=== PATIENT | male | born 1970 | race African-American/Black ===

== ENCOUNTER 2020-02-07 16:21 | Inpatient (IN) | payer SELFPAY ==
[~2020-02-07] VITALS: Ht 175.3 cm; Wt 102.0 kg
--- NOTE | 2020-02-07 16:44 | PHYS DOC ---
General Adult EDM: Chief Complaint: WEAKNESS/GENERALIZED HPI: HPI: Patient is a 50-year-old male who quit smoking cold turkey approximately 3 weeks ago and since that time has struggled with just not feeling right. He states he has significant cravings that he battles through. He states during those severe cravings at times he gets some chest tightness. He denies any shortness of breath. He denies dyspnea on exertion. In fact, he states he can walk more than a mile without getting particularly short of breath. He states he works out doing multiple push-ups and other exercises every night without chest pain. He states his body feels generally weak and just not the same. All of the symptoms of started since he stopped smoking. [] Review of Systems: Review of Systems: Constitutional: Denies fever or chills. [] Eyes: Denies change in visual acuity. [] HENT: Denies nasal congestion or sore throat. [] Respiratory: Denies cough or shortness of breath. [] Cardiovascular: Per HPI. [] GI: Denies abdominal pain, nausea, vomiting, bloody stools or diarrhea. [] : Denies dysuria. [] Musculoskeletal: Denies back pain or joint pain. [] Integument: Denies rash. [] Neurologic: Denies headache, focal weakness or sensory changes. [] Endocrine: Denies polyuria or polydipsia. [] Lymphatic: Denies swollen glands. [] Psychiatric: Denies depression or anxiety. [] Heart Score: HEART Score for Chest Pain: HEART Score for Chest Pain Response (Comments) Value History Moderately Suspicious 1 ECG Nonspecific Repolarizatio 1 Age >45 - < 65 1 Risk Factors 1 or 2 Risk Factors 1 Troponin < Normal Limit 0 Total 4 Risk Factors: Risk Factors: DM, Current or recent (<one month) smoker, HTN, HLP, family history of CAD, obesity. Risk Scores: Score 0 - 3: 2.5% MACE over next 6 weeks - Discharge Home Score 4 - 6: 20.3% MACE over next 6 weeks - Admit for Clinical Observation Score 7 - 10: 72.7% MACE over next 6 weeks - Early Invasive Strategies Physical Exam: PE: Constitutional: Well developed, well nourished, no acute distress, non-toxic appearance. [] HENT: Normocephalic, atraumatic, bilateral external ears normal, oropharynx moist, no oral exudates, nose normal. [] Eyes: PERRLA, EOMI, conjunctiva normal, no discharge. [] Neck: Normal range of motion, no tenderness, supple, no stridor. [] Cardiovascular:Heart rate regular rhythm, no murmur [] Lungs & Thorax: Bilateral breath sounds clear to auscultation [] Abdomen: Bowel sounds normal, soft, no tenderness, no masses, no pulsatile masses. [] Skin: Warm, dry, no erythema, no rash. [] Back: No tenderness, no CVA tenderness. [] Extremities: No tenderness, no cyanosis, no clubbing, ROM intact, no edema. [] Neurologic: Alert and oriented X 3, normal motor function, normal sensory function, no focal deficits noted. [] Psychologic: Affect normal, judgement normal, mood normal. [] EKG: EKG: [EKG: Sinus rhythm occasional PVCs some repolarization anteriorly no obvious ischemic changes] Radiology/Procedures: Radiology/Procedures: [] Impression: REASON: chest pain PROCEDURE: CHEST AP ONLY CHEST AP ONLY Clinical History: Chest pain Technique: AP view of the chest was obtained at 02/07/2020 4:41 PM. Comparison: None. Findings: The cardiomediastinal silhouette is normal. The pulmonary vasculature is normal. The lungs and pleural margins are clear. Impression: No evidence of an acute cardiopulmonary process. Course & Med Decision Making: Course & Med Decision Making Pertinent Labs and Imaging studies reviewed. (See chart for details) [ED course: Evaluation reveals a 50-year-old male with a history of some chest pain and just not feeling right. He remained chest pain-free during his stay in the department however had a heart score of 4 with an abnormal EKG and some risk factors so to the patient's best interest to be kept overnight with a cardiac stress test in the morning. Patient agrees to this.] Dragon Disclaimer: Danielle Disclaimer: This electronic medical record was generated, in whole or in part, using a voice recognition dictation system. Departure Departure Impression: Primary Impression: Chest pain Qualified Codes: R07.9 - Chest pain, unspecified Disposition: ADMITTED INPATIENT Admitting Physician: VIKY Condition: STABLE Referrals: NO PCP (PCP) LINA MOSER DO Feb 07, 2020 16:44
[2020-02-07] MEDS ORDERED: diazePAM 5 MG TABLET PO ONE (16:45)
[2020-02-07 16:52] LABS: BASO # 0.1 x10^3/uL (0.0-0.2); BASO % 0 % (0-3); EOS # 0.2 x10^3/uL (0.0-0.7); EOS % 1 % (0-3); HEMATOCRIT 47.4 % (39.0-53.0); HEMOGLOBIN 15.7 g/dL (13.0-17.5); LYMPH # 2.7 x10^3/uL (1.0-4.8); LYMPH % 21 % (24-48); MEAN CORPUSCULAR HEMOGLOBIN 29 pg (25-35); MEAN CORPUSCULAR HGB CONC 33 g/dL (31-37); MEAN CORPUSCULAR VOLUME 86 fL (79-100); MONO # 1.1 x10^3/uL (0.0-1.1); MONO % 8 % (0-9); NEUT # 8.7 x10^3/uL (1.8-7.7); NEUT % 69 % (31-73); PLATELET COUNT 225 x10^3/uL (140-400); RED CELL DISTRIBUTION WIDTH 13.8 % (11.5-14.5); WHITE BLOOD COUNT 12.7 x10^3/uL (4.0-11.0)
[2020-02-07 17:02] LABS: CALCIUM 9.7 mg/dL (8.5-10.1); CREATININE 1.6 mg/dL (0.7-1.3); GFR 55.6; POTASSIUM 3.6 mmol/L (3.5-5.1)
[2020-02-07 17:08] LABS: ALBUMIN 3.9 g/dL (3.4-5.0); MAGNESIUM 2.2 mg/dL (1.8-2.4); TOTAL BILIRUBIN 0.5 mg/dL (0.2-1.0); TOTAL PROTEIN 7.9 g/dL (6.4-8.2)
--- NOTE | 2020-02-07 17:21 | RAD ---
CHEST AP ONLY Clinical History: Chest pain Technique: AP view of the chest was obtained at 02/07/2020 4:41 PM. Comparison: None. Findings: The cardiomediastinal silhouette is normal. The pulmonary vasculature is normal. The lungs and pleural margins are clear. Impression: No evidence of an acute cardiopulmonary process. Electronically signed by: Seun Dhillno III, MD (02/07/2020 5:18 PM) [id number]
[2020-02-07 17:37] LABS: BILIRUBIN,URINE NEGATIVE (NEG); CLARITY,URINE CLEAR; COLOR,URINE YELLOW; NITRITE,URINE NEGATIVE (NEG); PROTEIN,URINE 30 mg/dL (NEG-TRACE)
[2020-02-07 17:38] LABS: BACTERIA,URINE 0 /HPF (0-FEW); RBC,URINE 0 /HPF (0-2); WBC,URINE 0 /HPF (0-4)
[2020-02-07] MEDS ORDERED: ASPIRIN CHEWABLE 81 MG TABLET. PO ONE (17:45)
[2020-02-07] MEDS ORDERED: ACETAMINOPHEN 325 MG TABLET. PO PRN (17:45)
[2020-02-07] MEDS ORDERED: ONDANSETRON PF 4 MG/2 ML VIAL. IV PRN (17:45)
[2020-02-07] MEDS ORDERED: NITROGLYCERIN SUBLINGUAL 0.4 MG BOTTLE OF 25. SL PRN (17:45)
[2020-02-07 19:58] VITALS: BP 215/122
--- NOTE | 2020-02-07 20:00 | EKG ---
[address] [place] [address] Test Date: 2020-02-07 Test Time: 17:00:47 Pat Name: LINDA BRISCOE Department: Room: 260 1 Gender: M Outpatient Surgery Rn: : 1970 Requested By: LINA MOSER Order Number: [id number] Reading MD: Hernando Ovalles Measurements Intervals [place] Rate: 95 P: 27 VA: 124 QRS: -7 QRSD: 80 T: -177 QT: 354 QTc: 448 Interpretive Statements SINUS RHYTHM VENTRICULAR PREMATURE COMPLEX(ES) LEFT ATRIAL ABNORMALITY LEFTWARD AXIS LVH WITH REPOLARIZATION ABNORMALITY QRS(T) CONTOUR ABNORMALITY CONSIDER INFERIOR MYOCARDIAL DAMAGE ABNORMAL ECG Electronically Signed On 02-08-2020 20:16:33 CDT by Hernando Ovalles
[2020-02-07] MEDS ORDERED: amLODIPine BESYLATE 5 MG TABLET PO ONE (20:45)
[2020-02-07] MEDS ORDERED: amLODIPine BESYLATE 10 MG TABLET PO ONE (20:45)
[2020-02-07 22:40] VITALS: BP 202/123
[2020-02-07] MEDS: hydrALAZINE 20 MG/ML VIAL. IVP PRN (22:42)
[2020-02-08] VITALS (29 sets, daily range): BP systolic 97–216; BP diastolic 70–120
[2020-02-08] MEDS: amLODIPine BESYLATE 10 MG TABLET PO SCH (08:38)
--- NOTE | 2020-02-08 11:15 | PDOC1 ---
History and Physical Date of Admission Date of Admission DATE: 02/08/20 TIME: 11:15 Identification/Chief Complaint Chief Complaint Seen in ER WITH chest tightness. He denies any shortness of breath. He denies dyspnea on exertion. states he can walk more than a mile without getting particularly short of breath. He states he works out doing multiple push-ups and other exercises every night without chest pain TROPONIN I NEG X 3 , admitted to [facility] Past Medical History Cardiovascular: No pertinent hx Heme/Onc: No pertinent hx Renal/: No pertinent hx Endocrine: No pertinent hx Family History Family History: Diabetes, Hypertension Family History: Parent Social History Smoke: Quit ALCOHOL: occassional Drugs: None Current Problem List Problem List Problems Medical Problems: (1) Chest pain Status: Acute Current Medications Current Medications Current Medications Diazepam (Valium) 5 mg 1X ONCE PO Last administered on 02/07/20at 17:35; Start 02/07/20 at 16:45; Stop 02/07/20 at 17:22; Status DC Aspirin (Aspirin Chewable) 324 mg 1X ONCE PO ; Start 02/07/20 at 17:45; Stop 02/07/20 at 17:47; Status DC Ondansetron HCl (Zofran) 4 mg PRN Q8HRS PRN IV NAUSEA/VOMITING; Start 02/07/20 at 17:45; Stop 02/08/20 at 17:44 Acetaminophen (Tylenol) 650 mg PRN Q4HRS PRN PO FEVER > 100.3'F; Start 02/07/20 at 17:45; Stop 02/08/20 at 17:44 Nitroglycerin (Nitrostat) 0.4 mg PRN Q5MIN PRN SL CHEST PAIN; Start 02/07/20 at 17:45; Stop 02/08/20 at 17:44 Amlodipine Besylate (Norvasc) 10 mg DAILY PO Last administered on 02/08/20at 08:38; Start 02/08/20 at 09:00 Amlodipine Besylate (Norvasc) 10 mg 1X ONCE PO ; Start 02/07/20 at 20:45; Stop 02/07/20 at 20:44; Status DC Hydralazine HCl (Apresoline Inj) 10 mg PRN Q6HRS PRN IVP ELEVATED BP, SEE COMMENTS Last administered on 02/07/20at 22:42; Start 02/07/20 at 20:45 Amlodipine Besylate (Norvasc) 10 mg 1X ONCE PO Last administered on 02/07/20at 20:48; Start 02/07/20 at 20:45; Stop 02/07/20 at 20:46; Status DC Nicardipine HCl 50 mg/Sodium Chloride 250 ml @ 25 mls/hr CONT PRN IV SEE I/O RECORD Last administered on 02/08/20at 08:39; Start 02/08/20 at 02:45 Active Scripts Active Reported No Known Medications Prior To Admisstion (Info) Each 1 Each 1X Allergies Allergies: Coded Allergies: No Known Drug Allergies (Unverified , 02/07/20) ROS Review of System Review of Systems: Review of Systems: Constitutional: Denies fever or chills. [] Eyes: Denies change in visual acuity. [] HENT: Denies nasal congestion or sore throat. [] Respiratory: Denies cough or shortness of breath. [] Cardiovascular: Per HPI. [] GI: Denies abdominal pain, nausea, vomiting, bloody stools or diarrhea. [] : Denies dysuria. [] Musculoskeletal: Denies back pain or joint pain. [] Integument: Denies rash. [] Neurologic: Denies headache, focal weakness or sensory changes. [] Endocrine: Denies polyuria or polydipsia. [] Lymphatic: Denies swollen glands. [] Psychiatric: Denies depression or anxiety. [] 14 PT ROS OTHERWISE NEG Eyes: No Blurry vision, No Decreased vision, No Double vision, No Dry eyes, No Excessive tearing, No Eye Pain, No Itchy Eyes, No Loss of vision, No Photophobia, No [place]om[place], No Uses contacts, No Uses glasses, No Other HEENT: No: Heacaches, Visual Changes, Hearing change, Nasal congestion, Nasal discharge, Oral lesions, Sinus pain, Sore Throat, Epistaxis, Sneezing, Snoring, Tinnitus, Vertigo, Vocal changes, Other Hematological and Lymphatic: No: Bleeding Problems, Blood Clots, Blood Transfusions, Brusing, Night Sweats, Pallor, Swollen Lymph Nodes, Other Respiratory: No: Cough, Hemoptysis, Orthopnea, Pleuritic Pain, Shortness of breath, SOB with excertion, Sputum Changes, Stridor, Tachypnea, Wheezing, Other Cardiovascular: yes Chest Pain; No Palpitations, No Orthopnea, No Paroxysmal Noc. Dyspnea, No Edema, No Lt Headedness, No Other Musculoskeletal: No Gait Disturbance, No Joint Pain, No Joint Stiffness, No Joint Swelling, No Muscle Pain, No Muscular Weakness, No Pain In:, No Swelling In:, No Other Physical Exam Physical Exam Physical Exam: PE: Constitutional: Well developed, well nourished, no acute distress, non-toxic appearance. [] HENT: Normocephalic, atraumatic, bilateral external ears normal, oropharynx [address], no oral exudates, nose normal. [] Eyes: PERRLA, EOMI, conjunctiva normal, no discharge. [] Neck: Normal range of motion, no tenderness, supple, no stridor. [] Cardiovascular:Heart rate regular rhythm, no murmur [] Lungs & Thorax: Bilateral breath sounds clear to auscultation [] Abdomen: Bowel sounds normal, soft, no tenderness, no masses, no pulsatile masses. [] Skin: Warm, dry, no erythema, no rash. [] Back: No tenderness, no CVA tenderness. [] Extremities: No tenderness, no cyanosis, no clubbing, ROM intact, no edema. [] Neurologic: Alert and oriented X 3, normal motor function, normal sensory function, no focal deficits noted. [] Psychologic: Affect normal, judgement normal, mood normal. [] General: Alert, Oriented X3, Cooperative, No acute distress HEENT: Atraumatic, EOMI, Mucous membr. moist/pink Lungs: Clear to auscultation, Normal air movement Heart: RRR, no thrills Breasts: Not examined Abdomen: Normal bowel sounds, Soft, No tenderness Rectal Exam: not examined Extremities: No cyanosis, No edema Skin: No significant lesion Neuro: Normal speech, Cranial nerves 3-12 NL Psych/Mental Status: Mental status NL, Mood NL Vitals Vitals Vital Signs Date Time Temp Pulse Resp B/P (MAP) Pulse Ox O2 Delivery O2 Flow Rate FiO2 02/08/20 08:38 111 149/91 02/08/20 07:52 Room Air 02/08/20 02:31 98.2 18 97 98.2 Labs Labs Laboratory Tests Test 02/07/20 16:44 4/25/20 17:17 02/07/20 20:42 02/07/20 23:40 White Blood Count 12.7 x10^3/uL (4.0-11.0) Red Blood Count 5.50 x10^6/uL (4.30-5.70) Hemoglobin 15.7 g/dL (13.0-17.5) Hematocrit 47.4 % (39.0-53.0) Mean Corpuscular Volume 86 fL (79-100) Mean Corpuscular Hemoglobin 29 pg (25-35) Mean Corpuscular Hemoglobin Concent 33 g/dL (31-37) Red Cell Distribution Width 13.8 % (11.5-14.5) Platelet Count 225 x10^3/uL (140-400) Neutrophils (%) (Auto) 69 % (31-73) Lymphocytes (%) (Auto) 21 % (24-48) Monocytes (%) (Auto) 8 % (0-9) Eosinophils (%) (Auto) 1 % (0-3) Basophils (%) (Auto) 0 % (0-3) Neutrophils # (Auto) 8.7 x10^3/uL (1.8-7.7) Lymphocytes # (Auto) 2.7 x10^3/uL (1.0-4.8) Monocytes # (Auto) 1.1 x10^3/uL (0.0-1.1) Eosinophils # (Auto) 0.2 x10^3/uL (0.0-0.7) Basophils # (Auto) 0.1 x10^3/uL (0.0-0.2) Sodium Level 140 mmol/L (136-145) Potassium Level 3.6 mmol/L (3.5-5.1) Chloride Level 102 mmol/L (98-107) Carbon Dioxide Level 32 mmol/L (21-32) Anion Gap 6 (6-14) Blood Urea Nitrogen 18 mg/dL (8-26) Creatinine 1.6 mg/dL (0.7-1.3) Estimated GFR (Cockcroft-Gault) 55.6 BUN/Creatinine Ratio 11 (6-20) Glucose Level 120 mg/dL (70-99) Calcium Level 9.7 mg/dL (8.5-10.1) Magnesium Level 2.2 mg/dL (1.8-2.4) Total Bilirubin 0.5 mg/dL (0.2-1.0) Aspartate Amino Transf (AST/SGOT) 28 U/L (15-37) Alanine Aminotransferase (ALT/SGPT) 56 U/L (16-63) Alkaline Phosphatase 121 U/L (46-116) Creatine Kinase 771 U/L (39-308) Troponin I Quantitative < 0.017 ng/mL (0.000-0.055) 0.017 ng/mL (0.000-0.055) 0.027 ng/mL (0.000-0.055) Total Protein 7.9 g/dL (6.4-8.2) Albumin 3.9 g/dL (3.4-5.0) Albumin/Globulin Ratio 1.0 (1.0-1.7) Thyroid Stimulating Hormone (TSH) 0.630 uIU/mL (0.358-3.74) Urine Collection Type Unknown Urine Color Yellow Urine Clarity Clear Urine pH 6.0 (<5.0-8.0) Urine Specific [place] 1.025 (1.000-1.030) Urine Protein 30 mg/dL (NEG-TRACE) Urine Glucose (UA) Negative mg/dL (NEG) Urine Ketones (Stick) Negative mg/dL (NEG) Urine Blood Negative (NEG) Urine Nitrite Negative (NEG) Urine Bilirubin Negative (NEG) Urine Urobilinogen Dipstick 1.0 mg/dL (0.2 mg/dL) Urine Leukocyte Esterase Negative (NEG) Urine RBC 0 /HPF (0-2) Urine WBC 0 /HPF (0-4) Urine Bacteria 0 /HPF (0-FEW) Urine Mucus Mod /LPF Laboratory Tests Test 02/07/20 16:44 02/07/20 17:17 02/07/20 20:42 02/07/20 23:40 White Blood Count 12.7 x10^3/uL (4.0-11.0) Red Blood Count 5.50 x10^6/uL (4.30-5.70) Hemoglobin 15.7 g/dL (13.0-17.5) Hematocrit 47.4 % (39.0-53.0) Mean Corpuscular Volume 86 fL (79-100) Mean Corpuscular Hemoglobin 29 pg (25-35) Mean Corpuscular Hemoglobin Concent 33 g/dL (31-37) Red Cell Distribution Width 13.8 % (11.5-14.5) Platelet Count 225 x10^3/uL (140-400) Neutrophils (%) (Auto) 69 % (31-73) Lymphocytes (%) (Auto) 21 % (24-48) Monocytes (%) (Auto) 8 % (0-9) Eosinophils (%) (Auto) 1 % (0-3) Basophils (%) (Auto) 0 % (0-3) Neutrophils # (Auto) 8.7 x10^3/uL (1.8-7.7) Lymphocytes # (Auto) 2.7 x10^3/uL (1.0-4.8) Monocytes # (Auto) 1.1 x10^3/uL (0.0-1.1) Eosinophils # (Auto) 0.2 x10^3/uL (0.0-0.7) Basophils # (Auto) 0.1 x10^3/uL (0.0-0.2) Sodium Level 140 mmol/L (136-145) Potassium Level 3.6 mmol/L (3.5-5.1) Chloride Level 102 mmol/L (98-107) Carbon Dioxide Level 32 mmol/L (21-32) Anion Gap 6 (6-14) Blood Urea Nitrogen 18 mg/dL (8-26) Creatinine 1.6 mg/dL (0.7-1.3) Estimated GFR (Cockcroft-Gault) 55.6 BUN/Creatinine Ratio 11 (6-20) Glucose Level 120 mg/dL (70-99) Calcium Level 9.7 mg/dL (8.5-10.1) Magnesium Level 2.2 mg/dL (1.8-2.4) Total Bilirubin 0.5 mg/dL (0.2-1.0) Aspartate Amino Transf (AST/SGOT) 28 U/L (15-37) Alanine Aminotransferase (ALT/SGPT) 56 U/L (16-63) Alkaline Phosphatase 121 U/L (46-116) Creatine Kinase 771 U/L (39-308) Troponin I Quantitative < 0.017 ng/mL (0.000-0.055) 0.017 ng/mL (0.000-0.055) 0.027 ng/mL (0.000-0.055) Total Protein 7.9 g/dL (6.4-8.2) Albumin 3.9 g/dL (3.4-5.0) Albumin/Globulin Ratio 1.0 (1.0-1.7) Thyroid Stimulating Hormone (TSH) 0.630 uIU/mL (0.358-3.74) Urine Collection Type Unknown Urine Color Yellow Urine Clarity Clear Urine pH 6.0 (<5.0-8.0) Urine Specific [place] 1.025 (1.000-1.030) Urine Protein 30 mg/dL (NEG-TRACE) Urine Glucose (UA) Negative mg/dL (NEG) Urine Ketones (Stick) Negative mg/dL (NEG) Urine Blood Negative (NEG) Urine Nitrite Negative (NEG) Urine Bilirubin Negative (NEG) Urine Urobilinogen Dipstick 1.0 mg/dL (0.2 mg/dL) Urine Leukocyte Esterase Negative (NEG) Urine RBC 0 /HPF (0-2) Urine WBC 0 /HPF (0-4) Urine Bacteria 0 /HPF (0-FEW) Urine Mucus Mod /LPF Images Images CHEST AP ONLY Clinical History: Chest pain Technique: AP view of the chest was obtained at 02/07/2020 4:41 PM. Comparison: None. Findings: The cardiomediastinal silhouette is normal. The pulmonary vasculature is normal. The lungs and pleural margins are clear. Impression: No evidence of an acute cardiopulmonary process. Electronically signed by: Chun Dhillon III, MD (02/07/2020 5:18 PM) [id number] DICTATED and SIGNED BY: CHUN DHILLON III, MD DATE: 02/07/20 1718 VTE Prophylaxis Ordered VTE Prophylaxis Devices: Yes VTE Pharmacological Prophylaxi: Yes Assessment/Plan Assessment/Plan Impression: Chest pain morbid obesity AUBRIE CR =1.6 HYPERTENSION tobacco abuse disorder, recent cessation ADMITTED CVC BED Serial troponin i consult cardiology RENAL penel now orally hydrate ua norvasc 5 mg po daily AM LABS DVT PROPHYLAXIS PROTONIX UDS D/W JIMBO SPANN MD Feb 08, 2020 11:15
[2020-02-08] MEDS ORDERED: ACETAMINOPHEN 325 MG TABLET. PO PRN (12:45)
[2020-02-08] MEDS: IPRATRPIUM/ALBUTEROL 0.5/2.5MG 3 ML NEBU. NEB SCH ×2 (12:45→15:59)
[2020-02-08] MEDS ORDERED: amLODIPine BESYLATE 5 MG TABLET PO ONE (12:45)
[2020-02-08] MEDS ORDERED: 0.9 % SODIUM CHLORIDE 10 ML DISP.SYRIN. IV PRN (12:45)
[2020-02-08] MEDS ORDERED: guaiFENesin ORAL 200 MG/10 ML LIQUID. PO PRN (12:45)
[2020-02-08] MEDS ORDERED: DOCUSATE SODIUM 100 MG CAPSULE. PO PRN (12:45)
[2020-02-08] MEDS ORDERED: cloNIDine HCL 0.1 MG TABLET PO PRN (12:45)
[2020-02-08 13:23] LABS: BILIRUBIN,URINE NEGATIVE (NEG); CLARITY,URINE CLEAR; COLOR,URINE YELLOW; NITRITE,URINE NEGATIVE (NEG); PH,URINE 6.5 (<5.0-8.0); PROTEIN,URINE NEGATIVE (NEG-TRACE); UROBILINOGEN,URINE 0.2 mg/dL (0.2 mg/dL)
[2020-02-08 13:42] LABS: BACTERIA,URINE 0 /HPF (0-FEW); SQUAMOUS EPITHELIAL CELL,UR FEW /LPF; WBC,URINE OCC /HPF (0-4)
[2020-02-08] MEDS: ENOXAPARIN 40 MG/0.4 ML SYRINGE. SQ SCH (13:43)
[2020-02-08] MEDS: IV NORMAL SALINE 1000ML BAG 1,000 ML IV SCH ×2 (13:43→20:33)
--- NOTE | 2020-02-08 15:38 | PDOC2 ---
CONSULT Date of Consult Date of Consult DATE: 02/08/20 TIME: 15:38 Reason for Consult Reason for Consult: Chest pain Referring Physician Referring Physician: Dr. Rivera Identification/Chief Complaint Chief Complaint Chest pain Source Source: Chart review, Patient History of Present Illness Reason for Visit: 50-year-old male presented with generalized weakness and intermittent episodes of retrosternal chest pain. The chest pain is described was very atypical and not related to exertion or food intake. He denied any orthopnea/PND, palpitations or syncope. Past Medical History Cardiovascular: No pertinent hx Heme/Onc: No pertinent hx Renal/: No pertinent hx Endocrine: No pertinent hx Family History Family History Hypertension and diabetes Family History: Diabetes, Hypertension Social History Social History: Parent Quit (Recently) ALCOHOL: occassional Drugs: None Current Problem List Problem List Problems Medical Problems: (1) Chest pain Status: Acute Current Medications Current Medications Current Medications Diazepam (Valium) 5 mg 1X ONCE PO Last administered on 02/07/20at 17:35; Start 02/07/20 at 16:45; Stop 02/07/20 at 17:22; Status DC Aspirin (Aspirin Chewable) 324 mg 1X ONCE PO ; Start 02/07/20 at 17:45; Stop 02/07/20 at 17:47; Status DC Ondansetron HCl (Zofran) 4 mg PRN Q8HRS PRN IV NAUSEA/VOMITING; Start 02/07/20 at 17:45; Stop 02/08/20 at 17:44 Acetaminophen (Tylenol) 650 mg PRN Q4HRS PRN PO FEVER > 100.3'F; Start 02/07/20 at 17:45; Stop 02/08/20 at 17:44 Nitroglycerin (Nitrostat) 0.4 mg PRN Q5MIN PRN SL CHEST PAIN; Start 02/07/20 at 17:45; Stop 02/08/20 at 17:44 Amlodipine Besylate (Norvasc) 10 mg DAILY PO Last administered on 02/08/20at 08:38; Start 02/08/20 at 09:00 Amlodipine Besylate (Norvasc) 10 mg 1X ONCE PO ; Start 02/07/20 at 20:45; Stop 02/07/20 at 20:44; Status DC Hydralazine HCl (Apresoline Inj) 10 mg PRN Q6HRS PRN IVP ELEVATED BP, SEE COMMENTS Last administered on 02/07/20at 22:42; Start 02/07/20 at 20:45 Amlodipine Besylate (Norvasc) 10 mg 1X ONCE PO Last administered on 02/07/20at 20:48; Start 02/07/20 at 20:45; Stop 02/07/20 at 20:46; Status DC Nicardipine HCl 50 mg/Sodium Chloride 250 ml @ 25 mls/hr CONT PRN IV SEE I/O RECORD Last administered on 02/08/20at 08:39; Start 02/08/20 at 02:45 Amlodipine Besylate (Norvasc) 5 mg 1X ONCE PO Last administered on 02/08/20at 13:44; Start 02/08/20 at 12:45; Stop 02/08/20 at 12:46; Status DC Amlodipine Besylate (Norvasc) 5 mg DAILY PO ; Start 02/09/20 at 09:00 Sodium Chloride (Normal Saline Flush) 3 ml QSHIFT PRN IV AFTER MEDS AND BLOOD DRAWS; Start 02/08/20 at 12:45 Sodium Chloride 1,000 ml @ 100 mls/hr Q10H IV Last administered on 02/08/20at 13:43; Start 02/08/20 at 12:37 Acetaminophen (Tylenol) 650 mg PRN Q4HRS PRN PO TEMP OVER 100.4F OR MILD PAIN; Start 02/08/20 at 12:45 Clonidine HCl (Catapres) 0.1 mg PRN Q6HRS PRN PO SBP>160 OR DBP>90; Start 02/08/20 at 12:45 Docusate Sodium (Colace) 100 mg PRN BID PRN PO CONSTIPATION; Start 02/08/20 at 12:45 Albuterol/ Ipratropium (Duoneb) 3 ml Q4H NEB ; Start 02/08/20 at 12:45 Guaifenesin (Robitussin) 200 mg PRN Q4HRS PRN PO COUGH; Start 02/08/20 at 12:45 Enoxaparin Sodium (Lovenox 40mg Syringe) 40 mg Q24H SQ Last administered on 02/08/20at 13:43; Start 02/08/20 at 13:00 Active Scripts Active Reported No Known Medications Prior To Admisstion (Info) Each 1 Each 1X Allergies Allergies: Coded Allergies: No Known Drug Allergies (Unverified , 02/07/20) ROS General: YES: Other (Generalized weakness) PSYCHOLOGICAL ROS: No: Hallucinations HEENT: No: Epistaxis Respiratory: No: Cough, Hemoptysis, Shortness of breath Cardiovascular: yes Chest Pain Gastrointestinal: No Vomiting, No Diarrhea Genitourinary: No Hematuria Neurological: No Seizures Skin: No Rash Physical Exam General: Alert, Oriented X3 HEENT: Atraumatic Lungs: Clear to auscultation Heart: Regular rate Abdomen: Soft Extremities: No edema Psych/Mental Status: Mood NL Vitals VITALS Vital Signs Date Time Temp Pulse Resp B/P (MAP) Pulse Ox O2 Delivery O2 Flow Rate FiO2 02/08/20 14:15 104 164/104 (124) 02/08/20 11:00 98.1 98.1 02/08/20 07:52 Room Air 02/08/20 02:31 18 97 Labs Labs Laboratory Tests Test 02/07/20 16:44 02/07/20 17:17 02/07/20 20:42 02/07/20 23:40 White Blood Count 12.7 x10^3/uL (4.0-11.0) Red Blood Count 5.50 x10^6/uL (4.30-5.70) Hemoglobin 15.7 g/dL (13.0-17.5) Hematocrit 47.4 % (39.0-53.0) Mean Corpuscular Volume 86 fL (79-100) Mean Corpuscular Hemoglobin 29 pg (25-35) Mean Corpuscular Hemoglobin Concent 33 g/dL (31-37) Red Cell Distribution Width 13.8 % (11.5-14.5) Platelet Count 225 x10^3/uL (140-400) Neutrophils (%) (Auto) 69 % (31-73) Lymphocytes (%) (Auto) 21 % (24-48) Monocytes (%) (Auto) 8 % (0-9) Eosinophils (%) (Auto) 1 % (0-3) Basophils (%) (Auto) 0 % (0-3) Neutrophils # (Auto) 8.7 x10^3/uL (1.8-7.7) Lymphocytes # (Auto) 2.7 x10^3/uL (1.0-4.8) Monocytes # (Auto) 1.1 x10^3/uL (0.0-1.1) Eosinophils # (Auto) 0.2 x10^3/uL (0.0-0.7) Basophils # (Auto) 0.1 x10^3/uL (0.0-0.2) Sodium Level 140 mmol/L (136-145) Potassium Level 3.6 mmol/L (3.5-5.1) Chloride Level 102 mmol/L (98-107) Carbon Dioxide Level 32 mmol/L (21-32) Anion Gap 6 (6-14) Blood Urea Nitrogen 18 mg/dL (8-26) Creatinine 1.6 mg/dL (0.7-1.3) Estimated GFR (Cockcroft-Gault) 55.6 BUN/Creatinine Ratio 11 (6-20) Glucose Level 120 mg/dL (70-99) Calcium Level 9.7 mg/dL (8.5-10.1) Magnesium Level 2.2 mg/dL (1.8-2.4) Total Bilirubin 0.5 mg/dL (0.2-1.0) Aspartate Amino Transf (AST/SGOT) 28 U/L (15-37) Alanine Aminotransferase (ALT/SGPT) 56 U/L (16-63) Alkaline Phosphatase 121 U/L (46-116) Creatine Kinase 771 U/L (39-308) Troponin I Quantitative < 0.017 ng/mL (0.000-0.055) 0.017 ng/mL (0.000-0.055) 0.027 ng/mL (0.000-0.055) Total Protein 7.9 g/dL (6.4-8.2) Albumin 3.9 g/dL (3.4-5.0) Albumin/Globulin Ratio 1.0 (1.0-1.7) Thyroid Stimulating Hormone (TSH) 0.630 uIU/mL (0.358-3.74) Urine Collection Type Unknown Urine Color Yellow Urine Clarity Clear Urine pH 6.0 (<5.0-8.0) Urine Specific [place] 1.025 (1.000-1.030) Urine Protein 30 mg/dL (NEG-TRACE) Urine Glucose (UA) Negative mg/dL (NEG) Urine Ketones (Stick) Negative mg/dL (NEG) Urine Blood Negative (NEG) Urine Nitrite Negative (NEG) Urine Bilirubin Negative (NEG) Urine Urobilinogen Dipstick 1.0 mg/dL (0.2 mg/dL) Urine Leukocyte Esterase Negative (NEG) Urine RBC 0 /HPF (0-2) Urine WBC 0 /HPF (0-4) Urine Bacteria 0 /HPF (0-FEW) Urine Mucus Mod /LPF Test 02/08/20 13:10 Urine Collection Type Unknown Urine Color Yellow Urine Clarity Clear Urine pH 6.5 (<5.0-8.0) Urine Specific [place] 1.015 (1.000-1.030) Urine Protein Negative mg/dL (NEG-TRACE) Urine Glucose (UA) Negative mg/dL (NEG) Urine Ketones (Stick) Trace mg/dL (NEG) Urine Blood Negative (NEG) Urine Nitrite Negative (NEG) Urine Bilirubin Negative (NEG) Urine Urobilinogen Dipstick 0.2 mg/dL (0.2 mg/dL) Urine Leukocyte Esterase Negative (NEG) Urine RBC 1-2 /HPF (0-2) Urine WBC Occ /HPF (0-4) Urine Squamous Epithelial Cells Few /LPF Urine Bacteria 0 /HPF (0-FEW) Urine Mucus Slight /LPF Laboratory Tests Test 02/07/20 16:44 02/07/20 17:17 02/07/20 20:42 02/07/20 23:40 White Blood Count 12.7 x10^3/uL (4.0-11.0) Red Blood Count 5.50 x10^6/uL (4.30-5.70) Hemoglobin 15.7 g/dL (13.0-17.5) Hematocrit 47.4 % (39.0-53.0) Mean Corpuscular Volume 86 fL (79-100) Mean Corpuscular Hemoglobin 29 pg (25-35) Mean Corpuscular Hemoglobin Concent 33 g/dL (31-37) Red Cell Distribution Width 13.8 % (11.5-14.5) Platelet Count 225 x10^3/uL (140-400) Neutrophils (%) (Auto) 69 % (31-73) Lymphocytes (%) (Auto) 21 % (24-48) Monocytes (%) (Auto) 8 % (0-9) Eosinophils (%) (Auto) 1 % (0-3) Basophils (%) (Auto) 0 % (0-3) Neutrophils # (Auto) 8.7 x10^3/uL (1.8-7.7) Lymphocytes # (Auto) 2.7 x10^3/uL (1.0-4.8) Monocytes # (Auto) 1.1 x10^3/uL (0.0-1.1) Eosinophils # (Auto) 0.2 x10^3/uL (0.0-0.7) Basophils # (Auto) 0.1 x10^3/uL (0.0-0.2) Sodium Level 140 mmol/L (136-145) Potassium Level 3.6 mmol/L (3.5-5.1) Chloride Level 102 mmol/L (98-107) Carbon Dioxide Level 32 mmol/L (21-32) Anion Gap 6 (6-14) Blood Urea Nitrogen 18 mg/dL (8-26) Creatinine 1.6 mg/dL (0.7-1.3) Estimated GFR (Cockcroft-Gault) 55.6 BUN/Creatinine Ratio 11 (6-20) Glucose Level 120 mg/dL (70-99) Calcium Level 9.7 mg/dL (8.5-10.1) Magnesium Level 2.2 mg/dL (1.8-2.4) Total Bilirubin 0.5 mg/dL (0.2-1.0) Aspartate Amino Transf (AST/SGOT) 28 U/L (15-37) Alanine Aminotransferase (ALT/SGPT) 56 U/L (16-63) Alkaline Phosphatase 121 U/L (46-116) Creatine Kinase 771 U/L (39-308) Troponin I Quantitative < 0.017 ng/mL (0.000-0.055) 0.017 ng/mL (0.000-0.055) 0.027 ng/mL (0.000-0.055) Total Protein 7.9 g/dL (6.4-8.2) Albumin 3.9 g/dL (3.4-5.0) Albumin/Globulin Ratio 1.0 (1.0-1.7) Thyroid Stimulating Hormone (TSH) 0.630 uIU/mL (0.358-3.74) Urine Collection Type Unknown Urine Color Yellow Urine Clarity Clear Urine pH 6.0 (<5.0-8.0) Urine Specific [place] 1.025 (1.000-1.030) Urine Protein 30 mg/dL (NEG-TRACE) Urine Glucose (UA) Negative mg/dL (NEG) Urine Ketones (Stick) Negative mg/dL (NEG) Urine Blood Negative (NEG) Urine Nitrite Negative (NEG) Urine Bilirubin Negative (NEG) Urine Urobilinogen Dipstick 1.0 mg/dL (0.2 mg/dL) Urine Leukocyte Esterase Negative (NEG) Urine RBC 0 /HPF (0-2) Urine WBC 0 /HPF (0-4) Urine Bacteria 0 /HPF (0-FEW) Urine Mucus Mod /LPF Test 02/08/20 13:10 Urine Collection Type Unknown Urine Color Yellow Urine Clarity Clear Urine pH 6.5 (<5.0-8.0) Urine Specific [place] 1.015 (1.000-1.030) Urine Protein Negative mg/dL (NEG-TRACE) Urine Glucose (UA) Negative mg/dL (NEG) Urine Ketones (Stick) Trace mg/dL (NEG) Urine Blood Negative (NEG) Urine Nitrite Negative (NEG) Urine Bilirubin Negative (NEG) Urine Urobilinogen Dipstick 0.2 mg/dL (0.2 mg/dL) Urine Leukocyte Esterase Negative (NEG) Urine RBC 1-2 /HPF (0-2) Urine WBC Occ /HPF (0-4) Urine Squamous Epithelial Cells Few /LPF Urine Bacteria 0 /HPF (0-FEW) Urine Mucus Slight /LPF Assessment/Plan Assessment/Plan 1. Chest pain with atypical features, most probably musculoskeletal. Myocardial infarction has been ruled out. Check 2D echo to assess LV function and rule out wall motion abnormalities. We will consider ischemic evaluation as an outpatient. 2. Accelerated hypertension: Blood pressure continues to be elevated. Add losartan for better control. Thank you for your consultation. DARLYN GOLDSTEIN MD Feb 08, 2020 15:38
[2020-02-08 15:55] LABS: ALBUMIN 3.9 g/dL (3.4-5.0); CALCIUM 9.5 mg/dL (8.5-10.1); CREATININE 1.3 mg/dL (0.7-1.3); GFR 70.7; PHOSPHORUS 3.2 mg/dL (2.6-4.7); POTASSIUM 3.4 mmol/L (3.5-5.1)
[2020-02-08 17:04] LABS: BARBITURATES NEG (NEG); BENZODIAZEPINES NEG (NEG); CANNABINOIDS POS (NEG); COCAINE NEG (NEG); METHADONE NEG (NEG); OPIATES NEG (NEG); PHENCYCLIDINE NEG (NEG)
[2020-02-08 17:08] LABS: AMPHETAMINE/METHAMPHETAMINE NEG (NEG)
[2020-02-08] MEDS: LOSARTAN POTASSIUM 50 MG TABLET. PO SCH (17:14)
[2020-02-08] MEDS ORDERED: ALBUTEROL SULFATE 2.5 MG/3 ML NEBU. NEB PRN (19:15)
[2020-02-08] MEDS ORDERED: IPRATRPIUM/ALBUTEROL 0.5/2.5MG 3 ML NEBU. NEB PRN (19:15)
[2020-02-09] VITALS (35 sets, daily range): BP systolic 134–237; BP diastolic 67–110
[2020-02-09] MEDS: hydrALAZINE 20 MG/ML VIAL. IVP PRN (02:56)
[2020-02-09] MEDS: amLODIPine BESYLATE 10 MG TABLET PO SCH (08:42)
[2020-02-09] MEDS: LOSARTAN POTASSIUM 50 MG TABLET. PO SCH (08:42)
[2020-02-09] MEDS: IV NORMAL SALINE 1000ML BAG 1,000 ML IV SCH ×2 (08:43→18:37)
[2020-02-09] MEDS ORDERED: amLODIPine BESYLATE 5 MG TABLET PO SCH (09:00)
--- NOTE | 2020-02-09 10:27 | PDOC ---
PROGRESS NOTES History of Present Illness History of Present Illness VTE Prophylaxis Ordered VTE Prophylaxis Devices: Yes VTE Pharmacological Prophylaxi: Yes Assessment/Plan Assessment/Plan Impression: Chest pain morbid obesity AUBRIE CR =1.6 HYPERTENSION, UNCONTROLLED, SLOW TO IMPROVE tobacco abuse disorder, recent cessation thc abuse ADMITTED CVC BED Serial troponin i consult cardiology RENAL penel now orally hydrate ua norvasc 10 mg po daily INC COZAAR TO 100MG PO DAILY AM LABS DVT PROPHYLAXIS PROTONIX UDS D/W RN Vitals Vitals Vital Signs Date Time Temp Pulse Resp B/P (MAP) Pulse Ox O2 Delivery O2 Flow Rate FiO2 02/09/20 08:42 116 237/99 02/09/20 08:00 Room Air 02/09/20 07:07 98.0 20 96 98.0 Physical Exam Physical Exam Neck: Normal range of motion, no tenderness, supple, no stridor. [] Cardiovascular:Heart rate regular rhythm, no murmur [] Lungs & Thorax: Bilateral breath sounds clear to auscultation [] Abdomen: Bowel sounds normal, soft, no tenderness, no masses, no pulsatile masses. [] Skin: Warm, dry, no erythema, no rash. [] Back: No tenderness, no CVA tenderness. [] Extremities: No tenderness, no cyanosis, no clubbing, ROM intact, no edema. [] Neurologic: Alert and oriented X 3, normal motor function, normal sensory function, no focal deficits noted. [] Psychologic: Affect normal, judgement normal, mood normal. [] General: Alert, Oriented X3, Cooperative, No acute distress HEENT: Atraumatic, EOMI, Mucous membr. moist/pink Lungs: Clear to auscultation, Normal air movement Heart: RRR, no thrills Breasts: Not examined Abdomen: Normal bowel sounds, Soft, No tenderness Rectal Exam: not examined Extremities: No cyanosis, No edema Skin: No significant lesion Neuro: Normal speech, Cranial nerves 3-12 NL Psych/Mental Status: Mental status NL, Mood NL General: Alert, Oriented X3, Cooperative, No acute distress Heart: Regular rate Lungs: Clear Abdomen: Soft, No tenderness Extremities: No edema Skin: No significant lesion Labs LABS Laboratory Tests Test 02/08/20 13:10 02/08/20 15:20 Urine Collection Type Unknown Urine Color Yellow Urine Clarity Clear Urine pH 6.5 (<5.0-8.0) Urine Specific [place] 1.015 (1.000-1.030) Urine Protein Negative mg/dL (NEG-TRACE) Urine Glucose (UA) Negative mg/dL (NEG) Urine Ketones (Stick) Trace mg/dL (NEG) Urine Blood Negative (NEG) Urine Nitrite Negative (NEG) Urine Bilirubin Negative (NEG) Urine Urobilinogen Dipstick 0.2 mg/dL (0.2 mg/dL) Urine Leukocyte Esterase Negative (NEG) Urine RBC 1-2 /HPF (0-2) Urine WBC Occ /HPF (0-4) Urine Squamous Epithelial Cells Few /LPF Urine Bacteria 0 /HPF (0-FEW) Urine Mucus Slight /LPF Urine Opiates Screen Neg (NEG) Urine Methadone Screen Neg (NEG) Urine Barbiturates Neg (NEG) Urine Phencyclidine Screen Neg (NEG) Urine Amphetamine/Methamphetamine Neg (NEG) Urine Benzodiazepines Screen Neg (NEG) Urine Cocaine Screen Neg (NEG) Urine Cannabinoids Screen Pos (NEG) Urine Ethyl Alcohol Neg (NEG) Sodium Level 140 mmol/L (136-145) Potassium Level 3.4 mmol/L (3.5-5.1) Chloride Level 104 mmol/L (98-107) Carbon Dioxide Level 25 mmol/L (21-32) Anion Gap 11 (6-14) Blood Urea Nitrogen 16 mg/dL (8-26) Creatinine 1.3 mg/dL (0.7-1.3) Estimated GFR (Cockcroft-Gault) 70.7 Glucose Level 111 mg/dL (70-99) Calcium Level 9.5 mg/dL (8.5-10.1) Phosphorus Level 3.2 mg/dL (2.6-4.7) Albumin 3.9 g/dL (3.4-5.0) Assessment and Plan Assessmemt and Plan Problems Medical Problems: (1) Chest pain Status: Acute Comment Review of Relevant I have reviewed the following items [place] (where applicable) has been applied. Labs Laboratory Tests Test 02/07/20 16:44 02/07/20 17:17 02/07/20 20:42 02/07/20 23:40 White Blood Count 12.7 x10^3/uL (4.0-11.0) Red Blood Count 5.50 x10^6/uL (4.30-5.70) Hemoglobin 15.7 g/dL (13.0-17.5) Hematocrit 47.4 % (39.0-53.0) Mean Corpuscular Volume 86 fL (79-100) Mean Corpuscular Hemoglobin 29 pg (25-35) Mean Corpuscular Hemoglobin Concent 33 g/dL (31-37) Red Cell Distribution Width 13.8 % (11.5-14.5) Platelet Count 225 x10^3/uL (140-400) Neutrophils (%) (Auto) 69 % (31-73) Lymphocytes (%) (Auto) 21 % (24-48) Monocytes (%) (Auto) 8 % (0-9) Eosinophils (%) (Auto) 1 % (0-3) Basophils (%) (Auto) 0 % (0-3) Neutrophils # (Auto) 8.7 x10^3/uL (1.8-7.7) Lymphocytes # (Auto) 2.7 x10^3/uL (1.0-4.8) Monocytes # (Auto) 1.1 x10^3/uL (0.0-1.1) Eosinophils # (Auto) 0.2 x10^3/uL (0.0-0.7) Basophils # (Auto) 0.1 x10^3/uL (0.0-0.2) Sodium Level 140 mmol/L (136-145) Potassium Level 3.6 mmol/L (3.5-5.1) Chloride Level 102 mmol/L (98-107) Carbon Dioxide Level 32 mmol/L (21-32) Anion Gap 6 (6-14) Blood Urea Nitrogen 18 mg/dL (8-26) Creatinine 1.6 mg/dL (0.7-1.3) Estimated GFR (Cockcroft-Gault) 55.6 BUN/Creatinine Ratio 11 (6-20) Glucose Level 120 mg/dL (70-99) Calcium Level 9.7 mg/dL (8.5-10.1) Magnesium Level 2.2 mg/dL (1.8-2.4) Total Bilirubin 0.5 mg/dL (0.2-1.0) Aspartate Amino Transf (AST/SGOT) 28 U/L (15-37) Alanine Aminotransferase (ALT/SGPT) 56 U/L (16-63) Alkaline Phosphatase 121 U/L (46-116) Creatine Kinase 771 U/L (39-308) Troponin I Quantitative < 0.017 ng/mL (0.000-0.055) 0.017 ng/mL (0.000-0.055) 0.027 ng/mL (0.000-0.055) Total Protein 7.9 g/dL (6.4-8.2) Albumin 3.9 g/dL (3.4-5.0) Albumin/Globulin Ratio 1.0 (1.0-1.7) Thyroid Stimulating Hormone (TSH) 0.630 uIU/mL (0.358-3.74) Urine Collection Type Unknown Urine Color Yellow Urine Clarity Clear Urine pH 6.0 (<5.0-8.0) Urine Specific [place] 1.025 (1.000-1.030) Urine Protein 30 mg/dL (NEG-TRACE) Urine Glucose (UA) Negative mg/dL (NEG) Urine Ketones (Stick) Negative mg/dL (NEG) Urine Blood Negative (NEG) Urine Nitrite Negative (NEG) Urine Bilirubin Negative (NEG) Urine Urobilinogen Dipstick 1.0 mg/dL (0.2 mg/dL) Urine Leukocyte Esterase Negative (NEG) Urine RBC 0 /HPF (0-2) Urine WBC 0 /HPF (0-4) Urine Bacteria 0 /HPF (0-FEW) Urine Mucus Mod /LPF Test 02/08/20 13:10 02/08/20 15:20 Urine Collection Type Unknown Urine Color Yellow Urine Clarity Clear Urine pH 6.5 (<5.0-8.0) Urine Specific [place] 1.015 (1.000-1.030) Urine Protein Negative mg/dL (NEG-TRACE) Urine Glucose (UA) Negative mg/dL (NEG) Urine Ketones (Stick) Trace mg/dL (NEG) Urine Blood Negative (NEG) Urine Nitrite Negative (NEG) Urine Bilirubin Negative (NEG) Urine Urobilinogen Dipstick 0.2 mg/dL (0.2 mg/dL) Urine Leukocyte Esterase Negative (NEG) Urine RBC 1-2 /HPF (0-2) Urine WBC Occ /HPF (0-4) Urine Squamous Epithelial Cells Few /LPF Urine Bacteria 0 /HPF (0-FEW) Urine Mucus Slight /LPF Urine Opiates Screen Neg (NEG) Urine Methadone Screen Neg (NEG) Urine Barbiturates Neg (NEG) Urine Phencyclidine Screen Neg (NEG) Urine Amphetamine/Methamphetamine Neg (NEG) Urine Benzodiazepines Screen Neg (NEG) Urine Cocaine Screen Neg (NEG) Urine Cannabinoids Screen Pos (NEG) Urine Ethyl Alcohol Neg (NEG) Sodium Level 140 mmol/L (136-145) Potassium Level 3.4 mmol/L (3.5-5.1) Chloride Level 104 mmol/L (98-107) Carbon Dioxide Level 25 mmol/L (21-32) Anion Gap 11 (6-14) Blood Urea Nitrogen 16 mg/dL (8-26) Creatinine 1.3 mg/dL (0.7-1.3) Estimated GFR (Cockcroft-Gault) 70.7 Glucose Level 111 mg/dL (70-99) Calcium Level 9.5 mg/dL (8.5-10.1) Phosphorus Level 3.2 mg/dL (2.6-4.7) Albumin 3.9 g/dL (3.4-5.0) Laboratory Tests Test 02/08/20 13:10 02/08/20 15:20 Urine Collection Type Unknown Urine Color Yellow Urine Clarity Clear Urine pH 6.5 (<5.0-8.0) Urine Specific [place] 1.015 (1.000-1.030) Urine Protein Negative mg/dL (NEG-TRACE) Urine Glucose (UA) Negative mg/dL (NEG) Urine Ketones (Stick) Trace mg/dL (NEG) Urine Blood Negative (NEG) Urine Nitrite Negative (NEG) Urine Bilirubin Negative (NEG) Urine Urobilinogen Dipstick 0.2 mg/dL (0.2 mg/dL) Urine Leukocyte Esterase Negative (NEG) Urine RBC 1-2 /HPF (0-2) Urine WBC Occ /HPF (0-4) Urine Squamous Epithelial Cells Few /LPF Urine Bacteria 0 /HPF (0-FEW) Urine Mucus Slight /LPF Urine Opiates Screen Neg (NEG) Urine Methadone Screen Neg (NEG) Urine Barbiturates Neg (NEG) Urine Phencyclidine Screen Neg (NEG) Urine Amphetamine/Methamphetamine Neg (NEG) Urine Benzodiazepines Screen Neg (NEG) Urine Cocaine Screen Neg (NEG) Urine Cannabinoids Screen Pos (NEG) Urine Ethyl Alcohol Neg (NEG) Sodium Level 140 mmol/L (136-145) Potassium Level 3.4 mmol/L (3.5-5.1) Chloride Level 104 mmol/L (98-107) Carbon Dioxide Level 25 mmol/L (21-32) Anion Gap 11 (6-14) Blood Urea Nitrogen 16 mg/dL (8-26) Creatinine 1.3 mg/dL (0.7-1.3) Estimated GFR (Cockcroft-Gault) 70.7 Glucose Level 111 mg/dL (70-99) Calcium Level 9.5 mg/dL (8.5-10.1) Phosphorus Level 3.2 mg/dL (2.6-4.7) Albumin 3.9 g/dL (3.4-5.0) Medications Current Medications Diazepam (Valium) 5 mg 1X ONCE PO Last administered on 02/07/20at 17:35; Start 02/07/20 at 16:45; Stop 02/07/20 at 17:22; Status DC Aspirin (Aspirin Chewable) 324 mg 1X ONCE PO ; Start 02/07/20 at 17:45; Stop 02/07/20 at 17:47; Status DC Ondansetron HCl (Zofran) 4 mg PRN Q8HRS PRN IV NAUSEA/VOMITING; Start 02/07/20 at 17:45; Stop 02/08/20 at 17:44; Status DC Acetaminophen (Tylenol) 650 mg PRN Q4HRS PRN PO FEVER > 100.3'F; Start 02/07/20 at 17:45; Stop 02/08/20 at 17:44; Status DC Nitroglycerin (Nitrostat) 0.4 mg PRN Q5MIN PRN SL CHEST PAIN; Start 02/07/20 at 17:45; Stop 02/08/20 at 17:44; Status DC Amlodipine Besylate (Norvasc) 10 mg DAILY PO Last administered on 02/09/20at 08:42; Start 02/08/20 at 09:00 Amlodipine Besylate (Norvasc) 10 mg 1X ONCE PO ; Start 02/07/20 at 20:45; Stop 02/07/20 at 20:44; Status DC Hydralazine HCl (Apresoline Inj) 10 mg PRN Q6HRS PRN IVP ELEVATED BP, SEE COMMENTS Last administered on 02/09/20at 02:56; Start 02/07/20 at 20:45 Amlodipine Besylate (Norvasc) 10 mg 1X ONCE PO Last administered on 02/07/20at 20:48; Start 02/07/20 at 20:45; Stop 02/07/20 at 20:46; Status DC Nicardipine HCl 50 mg/Sodium Chloride 250 ml @ 25 mls/hr CONT PRN IV SEE I/O RECORD Last administered on 02/08/20at 16:46; Start 02/08/20 at 02:45 Amlodipine Besylate (Norvasc) 5 mg 1X ONCE PO Last administered on 02/08/20at 13:44; Start 02/08/20 at 12:45; Stop 02/08/20 at 12:46; Status DC Amlodipine Besylate (Norvasc) 5 mg DAILY PO ; Start 02/09/20 at 09:00; Stop 02/08/20 at 16:11; Status DC Sodium Chloride (Normal Saline Flush) 3 ml QSHIFT PRN IV AFTER MEDS AND BLOOD DRAWS; Start 02/08/20 at 12:45 Sodium Chloride 1,000 ml @ 100 mls/hr Q10H IV Last administered on 02/09/20at 08:43; Start 02/08/20 at 12:37 Acetaminophen (Tylenol) 650 mg PRN Q4HRS PRN PO TEMP OVER 100.4F OR MILD PAIN; Start 02/08/20 at 12:45 Clonidine HCl (Catapres) 0.1 mg PRN Q6HRS PRN PO SBP>160 OR DBP>90; Start 02/08/20 at 12:45 Docusate Sodium (Colace) 100 mg PRN BID PRN PO CONSTIPATION; Start 02/08/20 at 12:45 Albuterol/ Ipratropium (Duoneb) 3 ml Q4H NEB Last administered on 02/08/20at 15:59; Start 02/08/20 at 12:45; Stop 02/08/20 at 19:12; Status DC Guaifenesin (Robitussin) 200 mg PRN Q4HRS PRN PO COUGH; Start 02/08/20 at 12:45 Enoxaparin Sodium (Lovenox 40mg Syringe) 40 mg Q24H SQ Last administered on 02/08/20at 13:43; Start 02/08/20 at 13:00 Losartan Potassium (Cozaar) 50 mg DAILY PO Last administered on 02/09/20at 08:4 2; Start 02/08/20 at 17:15 Albuterol/ Ipratropium (Duoneb) 3 ml PRN Q4HRS PRN NEB SHORTNESS OF BREATH; Start 02/08/20 at 19:15; Status UNV Albuterol Sulfate (Ventolin Neb Soln) 2.5 mg PRN Q4HRS PRN NEB SHORTNESS OF BREATH; Start 02/08/20 at 19:15 Active Scripts Active Reported No Known Medications Prior To Admisstion (Info) Each 1 Each 1X Vitals/I & O Vital Sign - Last 24 Hours 02/08/20 02/08/20 02/08/20 02/08/20 11:00 12:15 13:15 13:44 Temp 98.1 98.1 Pulse 107 108 114 B/P (MAP) 167/98 (121) 168/99 (122) 149/111 (124) 149/111 02/08/20 02/08/20 02/08/20 02/08/20 14:15 15:15 16:01 16:15 Pulse 104 114 106 B/P (MAP) 164/104 (124) 171/106 (127) 173/106 (128) Pulse Ox 100 O2 Delivery Room Air 02/08/20 02/08/20 02/08/20 02/08/20 17:14 17:15 18:15 19:28 Pulse 114 112 B/P (MAP) 159/101 168/101 (123) 150/94 (112) O2 Delivery Room Air 02/08/20 02/08/20 02/09/20 02/09/20 21:33 22:38 02:56 03:24 Temp 98.3 98.4 98.3 98.3 98.4 98.3 Pulse 104 104 107 105 Resp 20 22 20 B/P (MAP) 168/105 (126) 176/114 (134) 210/100 210/100 (136) Pulse Ox 97 97 97 O2 Delivery Room Air Room Air Room Air 02/09/20 02/09/20 02/09/20 02/09/20 07:07 08:00 08:42 08:42 Temp 98.0 98.0 Pulse 116 116 116 Resp 20 B/P (MAP) 237/99 (145) 237/99 237/99 Pulse Ox 96 O2 Delivery Room Air Room Air Intake and Output 02/08/20 02/08/20 02/09/20 15:00 23:00 07:00 Intake Total 420 ml 240 ml 2050 ml Balance 420 ml 240 ml 2050 ml JIMBO MORRISON MD Feb 09, 2020 10:27
[2020-02-09] MEDS ORDERED: POTASSIUM CHLORIDE 20 MEQ TABLET.ER. PO ONE ×2 (11:00→15:30)
--- NOTE | 2020-02-09 11:20 | CARD ---
MR#: [id number] Date of Study: 02/09/2020 Ordering Physician: DARLYN GOLDSTEIN, Referring Physician: DARLYN GOLDSTEIN Tech: Xena Thomas RDCS APPROVED REPORT EXAM: Two-dimensional and M-mode echocardiogram with Doppler and color Doppler. Other Information Quality : Good INDICATION Chest Pain 2D DIMENSIONS RVDd3.0 (2.9-3.5cm)Left Atrium(2D)3.4 (1.6-4.0cm) IVSd1.6 (0.7-1.1cm)Aortic Root(2D)2.8 (2.0-3.7cm) LVDd3.2 (3.9-5.9cm)LVOT Diameter2.0 (1.8-2.4cm) PWd1.6 (0.7-1.1cm)LVDs1.7 (2.5-4.0cm) FS (%) 30.0 %SV44.0 ml LVEF(%)60.0 (>50%) Aortic Valve AoV Peak Wiley.168.9cm/sAoV VTI21.8cm AO Peak GR.11.4mmHgLVOT Peak Wiley.129.7cm/s AO Mean GR.7mmHgAVA (VMAX)2.48cm2 MARISOL (VTI)2.70cm2 Mitral Valve MV E Utwqztzo75.4cm/sMV DECEL ARPB689ao MV A Lzcmlchy734.4cm/sE/A Ratio0.6 Pulmonary Vein S1 Lbzeupmo64.7cm/sD2 Wtnwdlxd79.9cm/s LEFT VENTRICLE The left ventricle cavity is small. There is left ventricular cavity obliteration in the apex due to left ventricular hypertrophy but there is no left ventricular outflow tract obstruction. There is mod erate concentric left ventricular hypertrophy. The left ventricular systolic function is normal. The Ejection Fraction is 60-65%. There is normal LV segmental wall motion. Transmitral Doppler flow patte rn is Grade I-abnormal relaxation pattern. RIGHT VENTRICLE The right ventricle is normal size. The right ventricular systolic function is normal. ATRIA The left atrium is mildly dilated. The right atrium size is normal. The interatrial septum is intact with no evidence for an atrial septal defect or patent foramen ovale as noted on 2-D or Doppler imagi ng. AORTIC VALVE The aortic valve is calcified but opens well. Doppler and Color Flow revealed no significant aortic r egurgitation. There is no significant aortic valvular stenosis. MITRAL VALVE The mitral valve is calcified but opens well. There is no evidence of mitral valve prolapse. There is no mitral valve stenosis. Doppler and Color Flow revealed no mitral valve regurgitation noted. TRICUSPID VALVE The tricuspid valve is normal in structure and function. Doppler and Color Flow revealed no tricuspid valve regurgitation noted. There is no tricuspid valve stenosis. PULMONIC VALVE The pulmonic valve is not well visualized. Doppler and Color Flow revealed no pulmonic valvular regur gitation. There is no pulmonic valvular stenosis. GREAT VESSELS The aortic root is normal in size. The ascending aorta is normal in size. The IVC is normal in size a nd collapses >50% with inspiration. PERICARDIAL EFFUSION There is no evidence of significant pericardial effusion. Critical Notification Critical Value: No <Conclusion> The left ventricular systolic function is normal. The Ejection Fraction is 60-65%. There is moderate concentric left ventricular hypertrophy. Transmitral Doppler flow pattern is Grade I-abnormal relaxation pattern. There is no evidence of significant pericardial effusion. Signed by : Darlyn Goldstein, Electronically Approved : 02/09/2020 11:19:31
--- NOTE | 2020-02-09 11:35 | PDOC ---
PROGRESS NOTES Subjective Subjective Feeling better. Denies any chest pain today. Objective Objective Vital Signs Date Time Temp Pulse Resp B/P (MAP) Pulse Ox O2 Delivery O2 Flow Rate FiO2 02/09/20 11:03 98.4 117 20 194/92 (126) 99 Room Air 98.4 Intake and Output 02/09/20 07:00 Intake Total 2710 ml Balance 2710 ml Intake Oral 1360 ml IV Total 1350 ml # Voids 1 Physical Exam Abdomen: Soft, No tenderness Heart: Regular rate Extremities: No edema General: Alert, Oriented X3, Cooperative, No acute distress HEENT: Atraumatic Lungs: Clear to auscultation Neuro: Normal speech, Cranial nerves 3-12 NL Psych/Mental Status: Mood NL Skin: No significant lesion Assessment Assessment 1. Chest pain with atypical features, most probably musculoskeletal. Myocardial infarction has been ruled out. 2D echo showed normal LV systolic function without any wall motion abnormalities. We will consider ischemic evaluation as an outpatient. 2. Accelerated hypertension: Blood pressure better controlled with addition of losartan. 3. Hypokalemia: Replace orally 4. Acute renal insufficiency, improved with hydration. Nephrology following. Plan Plan of Care Problems Medical Problems: (1) Chest pain Status: Acute Comment Review of Relevant I have reviewed the following items [place] (where applicable) has been applied. Labs Laboratory Tests Test 02/08/20 13:10 02/08/20 15:20 Urine Collection Type Unknown Urine Color Yellow Urine Clarity Clear Urine pH 6.5 (<5.0-8.0) Urine Specific [place] 1.015 (1.000-1.030) Urine Protein Negative mg/dL (NEG-TRACE) Urine Glucose (UA) Negative mg/dL (NEG) Urine Ketones (Stick) Trace mg/dL (NEG) Urine Blood Negative (NEG) Urine Nitrite Negative (NEG) Urine Bilirubin Negative (NEG) Urine Urobilinogen Dipstick 0.2 mg/dL (0.2 mg/dL) Urine Leukocyte Esterase Negative (NEG) Urine RBC 1-2 /HPF (0-2) Urine WBC Occ /HPF (0-4) Urine Squamous Epithelial Cells Few /LPF Urine Bacteria 0 /HPF (0-FEW) Urine Mucus Slight /LPF Urine Opiates Screen Neg (NEG) Urine Methadone Screen Neg (NEG) Urine Barbiturates Neg (NEG) Urine Phencyclidine Screen Neg (NEG) Urine Amphetamine/Methamphetamine Neg (NEG) Urine Benzodiazepines Screen Neg (NEG) Urine Cocaine Screen Neg (NEG) Urine Cannabinoids Screen Pos (NEG) Urine Ethyl Alcohol Neg (NEG) Sodium Level 140 mmol/L (136-145) Potassium Level 3.4 mmol/L (3.5-5.1) Chloride Level 104 mmol/L (98-107) Carbon Dioxide Level 25 mmol/L (21-32) Anion Gap 11 (6-14) Blood Urea Nitrogen 16 mg/dL (8-26) Creatinine 1.3 mg/dL (0.7-1.3) Estimated GFR (Cockcroft-Gault) 70.7 Glucose Level 111 mg/dL (70-99) Calcium Level 9.5 mg/dL (8.5-10.1) Phosphorus Level 3.2 mg/dL (2.6-4.7) Albumin 3.9 g/dL (3.4-5.0) Medications Current Medications Acetaminophen (Tylenol) 650 mg PRN Q4HRS PRN PO TEMP OVER 100.4F OR MILD PAIN; Start 02/08/20 at 12:45 Albuterol Sulfate (Ventolin Neb Soln) 2.5 mg PRN Q4HRS PRN NEB SHORTNESS OF BREATH; Start 02/08/20 at 19:15 Albuterol/ Ipratropium (Duoneb) 3 ml PRN Q4HRS PRN NEB SHORTNESS OF BREATH; Start 02/08/20 at 19:15; Status UNV Albuterol/ Ipratropium (Duoneb) 3 ml Q4H NEB Last administered on 02/08/20at 15:59; Start 02/08/20 at 12:45; Stop 02/08/20 at 19:12; Status DC Amlodipine Besylate (Norvasc) 5 mg 1X ONCE PO Last administered on 02/08/20at 13:44; Start 02/08/20 at 12:45; Stop 02/08/20 at 12:46; Status DC Amlodipine Besylate (Norvasc) 5 mg DAILY PO ; Start 02/09/20 at 09:00; Stop 02/08/20 at 16:11; Status DC Clonidine HCl (Catapres) 0.1 mg PRN Q6HRS PRN PO SBP>160 OR DBP>90; Start 02/08/20 at 12:45 Docusate Sodium (Colace) 100 mg PRN BID PRN PO CONSTIPATION; Start 02/08/20 at 12:45 Enoxaparin Sodium (Lovenox 40mg Syringe) 40 mg Q24H SQ Last administered on 02/08/20at 13:43; Start 02/08/20 at 13:00 Guaifenesin (Robitussin) 200 mg PRN Q4HRS PRN PO COUGH; Start 02/08/20 at 12:45 Losartan Potassium (Cozaar) 50 mg DAILY PO Last administered on 02/09/20at 08:42; Start 02/08/20 at 17:15 Potassium Chloride (Klor-Con) 20 meq 1X ONCE PO ; Start 02/09/20 at 11:00; Stop 02/09/20 at 11:01; Status DC Potassium Chloride (Klor-Con) 20 meq DAILYWBKFT PO ; Start 02/10/20 at 08:00 Sodium Chloride 1,000 ml @ 100 mls/hr Q10H IV Last administered on 02/09/20at 08:43; Start 02/08/20 at 12:37 Sodium Chloride (Normal Saline Flush) 3 ml QSHIFT PRN IV AFTER MEDS AND BLOOD DRAWS; Start 02/08/20 at 12:45 Vitals/I & O Vital Sign - Last 24 Hours 02/08/20 02/08/20 02/08/20 02/08/20 12:15 13:15 13:44 14:15 Pulse 108 114 104 B/P (MAP) 168/99 (122) 149/111 (124) 149/111 164/104 (124) 02/08/20 02/08/20 02/08/20 02/08/20 15:15 16:01 16:15 17:14 Pulse 114 106 B/P (MAP) 171/106 (127) 173/106 (128) 159/101 Pulse Ox 100 O2 Delivery Room Air 02/08/20 02/08/20 02/08/20 02/08/20 17:15 18:15 19:28 21:33 Temp 98.3 98.3 Pulse 114 112 104 Resp 20 B/P (MAP) 168/101 (123) 150/94 (112) 168/105 (126) Pulse Ox 97 O2 Delivery Room Air Room Air 02/08/20 02/09/20 02/09/2027/20 22:38 02:56 03:24 07:07 Temp 98.4 98.3 98.0 98.4 98.3 98.0 Pulse 104 107 105 116 Resp 22 20 20 B/P (MAP) 176/114 (134) 210/100 210/100 (136) 237/99 (145) Pulse Ox 97 97 96 O2 Delivery Room Air Room Air Room Air 02/09/20 02/09/20 02/09/20 02/09/20 07:14 07:29 07:44 07:59 Pulse 104 99 105 105 B/P (MAP) 165/88 (113) 163/96 (118) 181/102 (128) 179/93 (121) 02/09/20 02/09/20 02/09/20 02/09/20 08:00 08:29 08:42 08:42 Pulse 104 116 116 B/P (MAP) 144/97 (113) 237/99 237/99 O2 Delivery Room Air 02/09/20 02/09/20 02/09/20 02/09/20 08:44 08:59 09:14 09:29 Pulse 108 107 107 107 B/P (MAP) 165/97 (119) 163/98 (119) 156/90 (112) 160/95 (116) 02/09/20 02/09/20 02/09/20 09:44 09:59 11:03 Temp 98.4 98.4 Pulse 111 105 117 Resp 20 B/P (MAP) 159/91 (113) 178/110 (132) 194/92 (126) Pulse Ox 99 O2 Delivery Room Air Intake and Output 02/08/20 02/08/20 02/09/20 15:00 23:00 07:00 Intake Total 420 ml 240 ml 2050 ml Balance 420 ml 240 ml 2050 ml DARLYN GOLDSTEIN MD Feb 09, 2020 11:35
[2020-02-09] MEDS: CARVEDILOL 6.25 MG TABLET. PO SCH ×2 (12:25→16:52)
[2020-02-09] MEDS: ENOXAPARIN 40 MG/0.4 ML SYRINGE. SQ SCH (12:25)
--- NOTE | 2020-02-09 12:55 | PDOC2 ---
CONSULT Date of Consult Date of Consult DATE: 02/09/20 TIME: 12:47 Reason for Consult Reason for Consult: CHEST PAIN Referring Physician Referring Physician: PRINCE Identification/Chief Complaint Chief Complaint History of Present Illness Reason for Visit: THIS IS A 50 YR OLD WITH WEAKNESS AND CHEST PAIN. CURRENTLY UNDERGOING EV ALUATION BY CARDIOLOGY. RENAL CONSULT ASKED DUE TO A CR OF 1.6. NO KNOW CKD IS NOTED. NO OTHER HX OR NEPHROTOXINS NOTED. UA NEG FOR ACUTE FINDINGS. SHE HAS NOT BEEN ON ANY MEDICATIONS. HE WAS VERY HYPERTENSIVE ON ADMIT. HAS BEEN STARTED ON AN ARB AND COREG AND NOW ON SOME IVF'S AND CARDENE GTT. ALSO NOTED TO HAVE MILD HYPOKALEMIA AND A TENDENCY TOWARDS MET ALKALOSIS Past Medical History Cardiovascular: No pertinent hx Heme/Onc: No pertinent hx Renal/: No pertinent hx Endocrine: No pertinent hx Family History Family History: Diabetes, Hypertension Social History Social History: Parent Quit (Recently) ALCOHOL: occassional Drugs: None Current Problem List Problem List Problems Medical Problems: (1) Chest pain Status: Acute Current Medications Current Medications Current Medications Diazepam (Valium) 5 mg 1X ONCE PO Last administered on 02/07/20at 17:35; Start 02/07/20 at 16:45; Stop 02/07/20 at 17:22; Status DC Aspirin (Aspirin Chewable) 324 mg 1X ONCE PO ; Start 02/07/20 at 17:45; Stop 02/07/20 at 17:47; Status DC Ondansetron HCl (Zofran) 4 mg PRN Q8HRS PRN IV NAUSEA/VOMITING; Start 02/07/20 at 17:45; Stop 02/08/20 at 17:44; Status DC Acetaminophen (Tylenol) 650 mg PRN Q4HRS PRN PO FEVER > 100.3'F; Start 02/07/20 at 17:45; Stop 02/08/20 at 17:44; Status DC Nitroglycerin (Nitrostat) 0.4 mg PRN Q5MIN PRN SL CHEST PAIN; Start 02/07/20 at 17:45; Stop 02/08/20 at 17:44; Status DC Amlodipine Besylate (Norvasc) 10 mg DAILY PO Last administered on 02/09/20at 08:42; Start 02/08/20 at 09:00 Amlodipine Besylate (Norvasc) 10 mg 1X ONCE PO ; Start 02/07/20 at 20:45; Stop 02/07/20 at 20:44; Status DC Hydralazine HCl (Apresoline Inj) 10 mg PRN Q6HRS PRN IVP ELEVATED BP, SEE COMMENTS Last administered on 02/09/20at 02:56; Start 02/07/20 at 20:45 Amlodipine Besylate (Norvasc) 10 mg 1X ONCE PO Last administered on 02/07/20at 20:48; Start 02/07/20 at 20:45; Stop 02/07/20 at 20:46; Status DC Nicardipine HCl 50 mg/Sodium Chloride 250 ml @ 25 mls/hr CONT PRN IV SEE I/O RECORD Last administered on 02/09/20at 11:42; Start 02/08/20 at 02:45 Amlodipine Besylate (Norvasc) 5 mg 1X ONCE PO Last administered on 02/08/20at 13:44; Start 02/08/20 at 12:45; Stop 02/08/20 at 12:46; Status DC Amlodipine Besylate (Norvasc) 5 mg DAILY PO ; Start 02/09/20 at 09:00; Stop 02/08/20 at 16:11; Status DC Sodium Chloride (Normal Saline Flush) 3 ml QSHIFT PRN IV AFTER MEDS AND BLOOD DRAWS; Start 02/08/20 at 12:45 Sodium Chloride 1,000 ml @ 100 mls/hr Q10H IV Last administered on 02/09/20at 08:43; Start 02/08/20 at 12:37 Acetaminophen (Tylenol) 650 mg PRN Q4HRS PRN PO TEMP OVER 100.4F OR MILD PAIN; Start 02/08/20 at 12:45 Clonidine HCl (Catapres) 0.1 mg PRN Q6HRS PRN PO SBP>160 OR DBP>90 Last administered on 02/09/20at 12:26; Start 02/08/20 at 12:45 Docusate Sodium (Colace) 100 mg PRN BID PRN PO CONSTIPATION; Start 02/08/20 at 12:45 Albuterol/ Ipratropium (Duoneb) 3 ml Q4H NEB Last administered on 02/08/20at 15:59; Start 02/08/20 at 12:45; Stop 02/08/20 at 19:12; Status DC Guaifenesin (Robitussin) 200 mg PRN Q4HRS PRN PO COUGH; Start 02/08/20 at 12:45 Enoxaparin Sodium (Lovenox 40mg Syringe) 40 mg Q24H SQ Last administered on 02/09/20at 12:25; Start 02/08/20 at 13:00 Losartan Potassium (Cozaar) 50 mg DAILY PO Last administered on 02/09/20at 08:42; Start 02/08/20 at 17:15; Stop 02/09/20 at 12:37; Status DC Albuterol/ Ipratropium (Duoneb) 3 ml PRN Q4HRS PRN NEB SHORTNESS OF BREATH; Start 02/08/20 at 19:15; Status UNV Albuterol Sulfate (Ventolin Neb Soln) 2.5 mg PRN Q4HRS PRN NEB SHORTNESS OF BREATH; Start 02/08/20 at 19:15 Potassium Chloride (Klor-Con) 20 meq 1X ONCE PO Last administered on 02/09/20at 11:41; Start 02/09/20 at 11:00; Stop 02/09/20 at 11:01; Status DC Potassium Chloride (Klor-Con) 20 meq DAILYWBKFT PO ; Start 02/10/20 at 08:00 Carvedilol (Coreg) 6.25 mg BIDWMEALS PO Last administered on 02/09/20at 12:25; Start 02/09/20 at 12:30 Losartan Potassium (Cozaar) 100 mg DAILY PO ; Start 02/10/20 at 09:00 Losartan Potassium (Cozaar) 50 mg 1X ONCE PO ; Start 02/09/20 at 13:00; Stop 02/09/20 at 13:01 Active Scripts Active Reported No Known Medications Prior To Admisstion (Info) Each 1 Each MC 1X Allergies Allergies: Coded Allergies: No Known Drug Allergies (Unverified , 02/07/20) ROS General: YES: Fatigue PSYCHOLOGICAL ROS: YES: Anxiety ALLERGY AND IMMUNOLOGY: YES: Seasonal Allergies Respiratory: YES: Cough Cardiovascular: yes Chest Pain Gastrointestinal: Yes Constipation Genitourinary: YES Other (RARE NOCTURIA) Musculoskeletal: Yes Joint Stiffness, Yes Muscular Weakness Skin: Yes Dry Skin Physical Exam General: Alert, Oriented X3, Cooperative, No acute distress HEENT: Atraumatic Lungs: Clear to auscultation Heart: Regular rate, Normal S2 Abdomen: Soft Extremities: No clubbing Skin: No significant lesion Neuro: Normal speech Psych/Mental Status: Mood NL MUSCULOSKELETAL: No joint tenderness, No deformity Vitals VITALS Vital Signs Date Time Temp Pulse Resp B/P (MAP) Pulse Ox O2 Delivery O2 Flow Rate FiO2 02/09/20 12:26 101 193/81 02/09/20 11:03 98.4 20 99 Room Air 98.4 Labs Labs Laboratory Tests Test 02/07/20 16:44 02/07/20 17:17 02/07/20 20:42 02/07/20 23:40 White Blood Count 12.7 x10^3/uL (4.0-11.0) Red Blood Count 5.50 x10^6/uL (4.30-5.70) Hemoglobin 15.7 g/dL (13.0-17.5) Hematocrit 47.4 % (39.0-53.0) Mean Corpuscular Volume 86 fL (79-100) Mean Corpuscular Hemoglobin 29 pg (25-35) Mean Corpuscular Hemoglobin Concent 33 g/dL (31-37) Red Cell Distribution Width 13.8 % (11.5-14.5) Platelet Count 225 x10^3/uL (140-400) Neutrophils (%) (Auto) 69 % (31-73) Lymphocytes (%) (Auto) 21 % (24-48) Monocytes (%) (Auto) 8 % (0-9) Eosinophils (%) (Auto) 1 % (0-3) Basophils (%) (Auto) 0 % (0-3) Neutrophils # (Auto) 8.7 x10^3/uL (1.8-7.7) Lymphocytes # (Auto) 2.7 x10^3/uL (1.0-4.8) Monocytes # (Auto) 1.1 x10^3/uL (0.0-1.1) Eosinophils # (Auto) 0.2 x10^3/uL (0.0-0.7) Basophils # (Auto) 0.1 x10^3/uL (0.0-0.2) Sodium Level 140 mmol/L (136-145) Potassium Level 3.6 mmol/L (3.5-5.1) Chloride Level 102 mmol/L (98-107) Carbon Dioxide Level 32 mmol/L (21-32) Anion Gap 6 (6-14) Blood Urea Nitrogen 18 mg/dL (8-26) Creatinine 1.6 mg/dL (0.7-1.3) Estimated GFR (Cockcroft-Gault) 55.6 BUN/Creatinine Ratio 11 (6-20) Glucose Level 120 mg/dL (70-99) Calcium Level 9.7 mg/dL (8.5-10.1) Magnesium Level 2.2 mg/dL (1.8-2.4) Total Bilirubin 0.5 mg/dL (0.2-1.0) Aspartate Amino Transf (AST/SGOT) 28 U/L (15-37) Alanine Aminotransferase (ALT/SGPT) 56 U/L (16-63) Alkaline Phosphatase 121 U/L (46-116) Creatine Kinase 771 U/L (39-308) Troponin I Quantitative < 0.017 ng/mL (0.000-0.055) 0.017 ng/mL (0.000-0.055) 0.027 ng/mL (0.000-0.055) Total Protein 7.9 g/dL (6.4-8.2) Albumin 3.9 g/dL (3.4-5.0) Albumin/Globulin Ratio 1.0 (1.0-1.7) Thyroid Stimulating Hormone (TSH) 0.630 uIU/mL (0.358-3.74) Urine Collection Type Unknown Urine Color Yellow Urine Clarity Clear Urine pH 6.0 (<5.0-8.0) Urine Specific [place] 1.025 (1.000-1.030) Urine Protein 30 mg/dL (NEG-TRACE) Urine Glucose (UA) Negative mg/dL (NEG) Urine Ketones (Stick) Negative mg/dL (NEG) Urine Blood Negative (NEG) Urine Nitrite Negative (NEG) Urine Bilirubin Negative (NEG) Urine Urobilinogen Dipstick 1.0 mg/dL (0.2 mg/dL) Urine Leukocyte Esterase Negative (NEG) Urine RBC 0 /HPF (0-2) Urine WBC 0 /HPF (0-4) Urine Bacteria 0 /HPF (0-FEW) Urine Mucus Mod /LPF Test 02/08/20 13:10 02/08/20 15:20 Urine Collection Type Unknown Urine Color Yellow Urine Clarity Clear Urine pH 6.5 (<5.0-8.0) Urine Specific [place] 1.015 (1.000-1.030) Urine Protein Negative mg/dL (NEG-TRACE) Urine Glucose (UA) Negative mg/dL (NEG) Urine Ketones (Stick) Trace mg/dL (NEG) Urine Blood Negative (NEG) Urine Nitrite Negative (NEG) Urine Bilirubin Negative (NEG) Urine Urobilinogen Dipstick 0.2 mg/dL (0.2 mg/dL) Urine Leukocyte Esterase Negative (NEG) Urine RBC 1-2 /HPF (0-2) Urine WBC Occ /HPF (0-4) Urine Squamous Epithelial Cells Few /LPF Urine Bacteria 0 /HPF (0-FEW) Urine Mucus Slight /LPF Urine Opiates Screen Neg (NEG) Urine Methadone Screen Neg (NEG) Urine Barbiturates Neg (NEG) Urine Phencyclidine Screen Neg (NEG) Urine Amphetamine/Methamphetamine Neg (NEG) Urine Benzodiazepines Screen Neg (NEG) Urine Cocaine Screen Neg (NEG) Urine Cannabinoids Screen Pos (NEG) Urine Ethyl Alcohol Neg (NEG) Sodium Level 140 mmol/L (136-145) Potassium Level 3.4 mmol/L (3.5-5.1) Chloride Level 104 mmol/L (98-107) Carbon Dioxide Level 25 mmol/L (21-32) Anion Gap 11 (6-14) Blood Urea Nitrogen 16 mg/dL (8-26) Creatinine 1.3 mg/dL (0.7-1.3) Estimated GFR (Cockcroft-Gault) 70.7 Glucose Level 111 mg/dL (70-99) Calcium Level 9.5 mg/dL (8.5-10.1) Phosphorus Level 3.2 mg/dL (2.6-4.7) Albumin 3.9 g/dL (3.4-5.0) Laboratory Tests Test 02/08/20 13:10 02/08/20 15:20 Urine Collection Type Unknown Urine Color Yellow Urine Clarity Clear Urine pH 6.5 (<5.0-8.0) Urine Specific [place] 1.015 (1.000-1.030) Urine Protein Negative mg/dL (NEG-TRACE) Urine Glucose (UA) Negative mg/dL (NEG) Urine Ketones (Stick) Trace mg/dL (NEG) Urine Blood Negative (NEG) Urine Nitrite Negative (NEG) Urine Bilirubin Negative (NEG) Urine Urobilinogen Dipstick 0.2 mg/dL (0.2 mg/dL) Urine Leukocyte Esterase Negative (NEG) Urine RBC 1-2 /HPF (0-2) Urine WBC Occ /HPF (0-4) Urine Squamous Epithelial Cells Few /LPF Urine Bacteria 0 /HPF (0-FEW) Urine Mucus Slight /LPF Urine Opiates Screen Neg (NEG) Urine Methadone Screen Neg (NEG) Urine Barbiturates Neg (NEG) Urine Phencyclidine Screen Neg (NEG) Urine Amphetamine/Methamphetamine Neg (NEG) Urine Benzodiazepines Screen Neg (NEG) Urine Cocaine Screen Neg (NEG) Urine Cannabinoids Screen Pos (NEG) Urine Ethyl Alcohol Neg (NEG) Sodium Level 140 mmol/L (136-145) Potassium Level 3.4 mmol/L (3.5-5.1) Chloride Level 104 mmol/L (98-107) Carbon Dioxide Level 25 mmol/L (21-32) Anion Gap 11 (6-14) Blood Urea Nitrogen 16 mg/dL (8-26) Creatinine 1.3 mg/dL (0.7-1.3) Estimated GFR (Cockcroft-Gault) 70.7 Glucose Level 111 mg/dL (70-99) Calcium Level 9.5 mg/dL (8.5-10.1) Phosphorus Level 3.2 mg/dL (2.6-4.7) Albumin 3.9 g/dL (3.4-5.0) Assessment/Plan Assessment/Plan IMP AUBRIE-UNLIKELY ATN-UA NEG CHEST PAIN MORBID OBESITY HTN-UNCONTROLLED HYPOKALEMIA MET ALKALOSIS PLAN HYDRATION AGREE WITH CURRENTLY BP MED REGIMEN IF HTN REMAINS DIFFICULT TO CONTROL AND HYPOKALEMIA IS A PERSISTENT PROBLEM WE WILL NEED TO RULE OUT CONN'S SYNDROME WILL FOLLOW HI PETER MD Feb 09, 2020 12:55
[2020-02-09] MEDS ORDERED: LOSARTAN POTASSIUM 50 MG TABLET. PO ONE (13:00)
--- NOTE | 2020-02-09 13:43 | NUR ---
SS following for discharge planning. SS reviewed pt chart and discussed with pt RN. Pt is from home and is currently on room air. Pt is self pay pt. Discharge plan is to home when medically stable. Per pt's RN, blood pressures out of control. SS will continue to follow for discharge planning.
[2020-02-10] VITALS (10 sets, daily range): BP systolic 120–145; BP diastolic 71–98
[2020-02-10] MEDS: IV NORMAL SALINE 1000ML BAG 1,000 ML IV SCH (01:55)
[2020-02-10 05:53] LABS: CALCIUM 9.1 mg/dL (8.5-10.1); CREATININE 1.2 mg/dL (0.7-1.3); GFR 77.5; MAGNESIUM 1.7 mg/dL (1.8-2.4); POTASSIUM 3.7 mmol/L (3.5-5.1)
[2020-02-10] MEDS ORDERED: POTASSIUM CHLORIDE 20 MEQ TABLET.ER. PO SCH (08:00)
[2020-02-10] MEDS: amLODIPine BESYLATE 10 MG TABLET PO SCH (08:36)
[2020-02-10] MEDS: CARVEDILOL 6.25 MG TABLET. PO SCH (08:36)
[2020-02-10] MEDS: ENOXAPARIN 40 MG/0.4 ML SYRINGE. SQ SCH (08:37)
[2020-02-10] MEDS ORDERED: LOSARTAN POTASSIUM 50 MG TABLET. PO SCH (09:00)
--- NOTE | 2020-02-10 11:50 | PDOC ---
Renal-Progress Notes Subjective Notes Notes NONE History of Present Illness Hx of present illness STABLE Vitals Vitals Vital Signs Date Time Temp Pulse Resp B/P (MAP) Pulse Ox O2 Delivery O2 Flow Rate FiO2 02/10/20 10:35 98.0 94 18 130/94 (106) 95 Room Air 98.0 Weight Weight [ ] I.O. Intake and Output Intake and Output 02/10/20 07:00 Intake Total 3200 ml Output Total 1200 ml Balance 2000 ml Intake Oral 2020 ml IV Total 1180 ml Output Urine Total 1200 ml # Voids 11 Labs Labs Laboratory Tests Test 02/10/20 04:55 Sodium Level 140 mmol/L (136-145) Potassium Level 3.7 mmol/L (3.5-5.1) Chloride Level 106 mmol/L (98-107) Carbon Dioxide Level 26 mmol/L (21-32) Anion Gap 8 (6-14) Blood Urea Nitrogen 14 mg/dL (8-26) Creatinine 1.2 mg/dL (0.7-1.3) Estimated GFR (Cockcroft-Gault) 77.5 Glucose Level 97 mg/dL (70-99) Calcium Level 9.1 mg/dL (8.5-10.1) Magnesium Level 1.7 mg/dL (1.8-2.4) Review of Systems Constitutional: yes: weakness, alert Ears/Nose/Throat: Yes: no symptom reported Eyes: Yes: no symptom reported Pulmonary: Yes no symptom reported Cardiovascular: Yes no symptom reported Gastrointestional: Yes: no symptom reported Musculoskeletal: Yes: no symptom reported Skin: Yes no symptom reported Psychiatric/Neurological: Yes: no symptom reported Physical Exam General Appearance: no apparent distress Skin: warm Respiratory: decreased breath sounds Abdomen: soft, bowel sounds present Genitourinary: bladder flat Neurology: alert Assessment Assessment IMP AUBRIE-RESOLVED CHEST PAIN MORBID OBESITY HTN-IMPROVED HYPOKALEMIA-RESOLVED LOW MAG PLAN REPLACE MAG WILL SIGN OFF HI PETER MD Feb 10, 2020 11:50
[2020-02-10] MEDS: hydrALAZINE 25 MG TABLET PO SCH ×2 (11:59→14:01)
[2020-02-10] MEDS ORDERED: MAGNESIUM SULFATE 2GM 50 ML IV ONE (12:30)
--- NOTE | 2020-02-10 13:21 | PDOC ---
PROGRESS NOTES Subjective Subjective Denied any chest pain today Objective Objective Vital Signs Date Time Temp Pulse Resp B/P (MAP) Pulse Ox O2 Delivery O2 Flow Rate FiO2 02/10/20 11:59 92 143/94 02/10/20 10:35 98.0 18 95 Room Air 98.0 Intake and Output 02/10/20 07:00 Intake Total 3200 ml Output Total 1200 ml Balance 2000 ml Intake Oral 2020 ml IV Total 1180 ml Output Urine Total 1200 ml # Voids 11 Physical Exam Abdomen: Soft Heart: Regular rate, Normal S2 Extremities: No clubbing General: Alert, Oriented X3, Cooperative, No acute distress HEENT: Atraumatic Lungs: Clear to auscultation MUSCULOSKELETAL: No joint tenderness, No deformity Neuro: Normal speech Psych/Mental Status: Mood NL Skin: No significant lesion Assessment Assessment 1. Chest pain with atypical features, most probably musculoskeletal. Myocardial infarction has been ruled out. 2D echo showed normal LV systolic function without any wall motion abnormalities. We will consider ischemic evaluation as an outpatient. 2. Accelerated hypertension: Blood pressure better controlled with addition of losartan. Cardene being weaned off. 3. Hypokalemia: Replaced 4. Acute renal insufficiency, improved with hydration. Nephrology following. Plan Plan of Care Problems Medical Problems: (1) Chest pain Status: Acute Comment Review of Relevant I have reviewed the following items [place] (where applicable) has been applied. Labs Laboratory Tests Test 02/10/20 04:55 Sodium Level 140 mmol/L (136-145) Potassium Level 3.7 mmol/L (3.5-5.1) Chloride Level 106 mmol/L (98-107) Carbon Dioxide Level 26 mmol/L (21-32) Anion Gap 8 (6-14) Blood Urea Nitrogen 14 mg/dL (8-26) Creatinine 1.2 mg/dL (0.7-1.3) Estimated GFR (Cockcroft-Gault) 77.5 Glucose Level 97 mg/dL (70-99) Calcium Level 9.1 mg/dL (8.5-10.1) Magnesium Level 1.7 mg/dL (1.8-2.4) Medications Current Medications Hydralazine HCl (Apresoline) 25 mg TID PO Last administered on 02/10/20at 11:59; Start 02/10/20 at 11:30 Losartan Potassium (Cozaar) 100 mg DAILY PO Last administered on 02/10/20at 08:3 7; Start 02/10/20 at 09:00 Magnesium Sulfate 50 ml @ 25 mls/hr 1X ONCE IV Last administered on 02/10/20at 12:43; Start 02/10/20 at 12:30; Stop 02/10/20 at 14:29 Potassium Chloride (Klor-Con) 20 meq DAILYWBKFT PO Last administered on 02/10/20at 08:36; Start 02/10/20 at 08:00 Potassium Chloride (Klor-Con) 40 meq 1X ONCE PO Last administered on 02/09/20at 16:52; Start 02/09/20 at 15:30; Stop 02/09/20 at 15:31; Status DC Vitals/I & O Vital Sign - Last 24 Hours 02/09/20 02/09/20 02/09/20 02/09/20 13:45 14:15 14:30 14:34 Temp 98.5 98.5 Pulse 110 86 85 90 Resp 20 B/P (MAP) 144/72 (96) 146/72 (96) 146/72 (96) 139/67 (91) Pulse Ox 93 O2 Delivery Room Air 02/09/20 02/09/20 02/09/20 02/09/20 15:00 15:30 16:00 16:30 Pulse 85 89 86 94 B/P (MAP) 143/73 (96) 161/75 (103) 164/77 (106) 144/79 (100) 02/09/20 02/09/20 02/09/20 02/09/20 16:52 19:00 19:54 20:00 Temp 98.4 98.4 Pulse 94 83 72 Resp 16 B/P (MAP) 144/79 175/83 (113) 157/94 (115) O2 Delivery Room Air Room Air 02/09/20 02/09/20 02/09/20 02/09/20 20:05 21:37 23:00 23:31 Temp 98.5 98.5 Pulse 74 98 88 92 Resp 16 B/P (MAP) 151/94 (113) 134/86 (102) 137/98 (111) 140/91 (107) Pulse Ox 94 O2 Delivery Room Air Room Air 02/10/20 02/10/20 02/10/20 02/10/20 00:35 02:09 03:00 03:23 Temp 98.1 98.1 Pulse 88 100 119 88 Resp 17 B/P (MAP) 128/93 (105) 129/82 (98) 134/91 (105) 131/80 (97) Pulse Ox 97 O2 Delivery Room Air Room Air 02/10/20 02/10/20 02/10/20 02/10/20 04:23 05:23 06:23 07:30 Temp 98.0 98.0 Pulse 94 96 104 106 Resp 16 B/P (MAP) 139/85 (103) 120/74 (89) 138/71 (93) 145/94 (111) Pulse Ox 94 O2 Delivery Room Air 02/10/20 02/10/20 02/10/20 02/10/20 08:30 08:36 08:36 08:37 Pulse 100 103 102 B/P (MAP) 136/86 136/86 136/86 O2 Delivery Room Air 02/10/20 02/10/20 10:35 11:59 Temp 98.0 98.0 Pulse 94 92 Resp 18 B/P (MAP) 130/94 (106) 143/94 Pulse Ox 95 O2 Delivery Room Air Intake and Output 02/09/20 02/09/20 02/10/20 15:00 23:00 07:00 Intake Total 420 ml 950 ml 1830 ml Output Total 500 ml 700 ml Balance 420 ml 450 ml 1130 ml DARLYN GOLDSTEIN MD Feb 10, 2020 13:21
--- NOTE | 2020-02-10 14:39 | NUR ---
SS following up with discharge planning. SS discussed with pt RN. Pt is currently on room air. No PT/OT needs. Pt will discharge to home when ready. SS will continue to follow for discharge planning.
--- NOTE | 2020-02-10 15:42 | PDOC3 ---
Discharge Summary Visit Information Date of Admission: Feb 08, 2020 Date of Discharge: Feb 10, 2020 Admitting Diagnosis Comment: Chest pain Morbid obesity Acute kidney injury with a creatinine of 1.6 Hypertension Tobacco abuse disorder Final Diagnosis Problems Medical Problems: (1) Chest pain ACS ruled out Hypertensive urgency improved Obesity with a BMI of 33 Essential hypertension Marijuana abuse Status: Acute Brief Hospital Course Allergies Allergies Coded Allergies Type Severity Reaction Last Updated Verified No Known Drug Allergies 02/07/20 No Vital Signs Vital Signs Date Time Temp Pulse Resp B/P (MAP) Pulse Ox O2 Delivery O2 Flow Rate FiO2 02/10/20 14:01 96 141/93 02/10/20 10:35 98.0 18 95 Room Air 98.0 Lab Results Laboratory Tests Test 02/10/20 04:55 Sodium Level 140 mmol/L (136-145) Potassium Level 3.7 mmol/L (3.5-5.1) Chloride Level 106 mmol/L (98-107) Carbon Dioxide Level 26 mmol/L (21-32) Anion Gap 8 (6-14) Blood Urea Nitrogen 14 mg/dL (8-26) Creatinine 1.2 mg/dL (0.7-1.3) Estimated GFR (Cockcroft-Gault) 77.5 Glucose Level 97 mg/dL (70-99) Calcium Level 9.1 mg/dL (8.5-10.1) Magnesium Level 1.7 mg/dL (1.8-2.4) Laboratory Tests Test 02/10/20 04:55 Sodium Level 140 mmol/L (136-145) Potassium Level 3.7 mmol/L (3.5-5.1) Chloride Level 106 mmol/L (98-107) Carbon Dioxide Level 26 mmol/L (21-32) Anion Gap 8 (6-14) Blood Urea Nitrogen 14 mg/dL (8-26) Creatinine 1.2 mg/dL (0.7-1.3) Estimated GFR (Cockcroft-Gault) 77.5 Glucose Level 97 mg/dL (70-99) Calcium Level 9.1 mg/dL (8.5-10.1) Magnesium Level 1.7 mg/dL (1.8-2.4) Brief Hospital Course Patient: LINDA BRISCOE Acct:[id number] Unit: [id number] : 1970 Loc: 2 [facility] Room/ Bed: 2461 Age/Sex: 50 / M ADM Status: ADM IN ADM Date: 02/07/20 History and Physical Date of Admission Date of Admission DATE: 02/08/20 TIME: 11:15 Identification/Chief Complaint Chief Complaint Seen in ER WITH chest tightness. He denies any shortness of breath. He denies dyspnea on exertion. states he can walk more than a mile without getting particularly short of breath. He states he works out doing multiple push-ups and other exercises every night without chest pain TROPONIN I NEG X 3 , admitted to [facility] Cardiology standpoint of view. Patient admitted to the medical floor with telemetry and seen in consultation by Dr. Ovalles, ECho done with normal results. Patient also was seen in consultation by nephrology due to the creatinine of 1.6 he does not have history of chronic kidney disease no further recommendations were deemed necessary at the present time. Patient's blood pressure responded to Cardene drip and he was transitioned to oral hydralazine lisinopril and amlodipine moving forward. He is also on Coreg which can certainly be addressed in the outpatient setting. Blood pressure improved and his symptoms improved as well, he understands the signs and symptoms of concern and when to seek medical attention. I have encouraged him to follow-up with his primary care physician in the outpatient setting and also with cardiology in the outpatient setting. He is in good spirits to be discharged home Physical examination on the day of discharge Lungs clear to auscultation with good respiratory effort Cardiovascular exam S1-S2 regular rhythm with no murmurs Assessment Assessment Echo <Conclusion> The left ventricular systolic function is normal. The Ejection Fraction is 60-65%. There is moderate concentric left ventricular hypertrophy. Transmitral Doppler flow pattern is Grade I-abnormal relaxation pattern. There is no evidence of significant pericardial effusion. Signed by : Hernando Ovalles, Electronically Approved : 02/09/2020 11:19:31 Signed PATIENT: LINDA BRISCOE ACCOUNT: [id number] : 1970 LOCATION: ER AGE: 50 SEX: M EXAM STATUS: REG ER ORD. PHYSICIAN: LINA MOSER DO REASON: chest pain PROCEDURE: CHEST AP ONLY CHEST AP ONLY Clinical History: Chest pain Technique: AP view of the chest was obtained at 02/07/2020 4:41 PM. Comparison: None. Findings: The cardiomediastinal silhouette is normal. The pulmonary vasculature is normal. The lungs and pleural margins are clear. Impression: No evidence of an acute cardiopulmonary process. Electronically signed by: Seun Dhillon III, MD (02/07/2020 5:18 PM) [id number] Discharge Information Condition at Discharge: Improved Follow Up: Weeks Disposition/Orders: D/C to Home Scheduled Info (No Known Medications Prior To Admisstion) Each, 1 EACH 1X for no meds, (Reported) Entered as Reported by: Gerson Anderson on 02/07/201933 Last Action: New Order on 02/07/201933 by DEISY Simon MD Feb 10, 2020 15:42
[2020-02-10] MEDS ORDERED: LOSA-73 PO (15:48)
[2020-02-10] MEDS ORDERED: AMLO10TA8 PO (15:48)
[2020-02-10] MEDS ORDERED: CARV6.2511 PO (15:48)
[2020-02-10] MEDS ORDERED: HYDR-2868 PO (15:48)
--- NOTE | 2020-02-10 16:27 | NUR ---
Discharge Note: LINDA BRISCOE Discharge instructions and discharge home medications reviewed with Patient and a copy given. All questions have been answered and understanding verbalized. The following instructions and handouts were given: HTN, managing HTN, losartan, amlodipine, carvedilol, hydralazine, bp record sheet Discontinued lines and drains: Peripheral IV intact. Patient discharged to Home or Self Care with Friend via Wheelchair
== END 2020-02-10 16:28 | disposition home or self-care (01) | DRG 683 ==
LOC: ER 16:21 → 2 SOUTH 17:40 → OBSVTOIN 02-08 23:49
PROVIDERS: ADMIT Family Medicine; ATTEND Family Medicine
DX: N17.9 Acute kidney failure, unspecified (principal); E87.3 Alkalosis; I16.0 Hypertensive urgency; R07.89 Other chest pain; E66.01 Morbid (severe) obesity due to excess calories; E87.6 Hypokalemia; F12.10 Cannabis abuse, uncomplicated; I11.9 Hypertensive heart disease without heart failure; Z68.33 Body mass index [BMI] 33.0-33.9, adult; Z72.0 Tobacco use; Z79.899 Other long term (current) drug therapy; Z82.49 Family history of ischemic heart disease and other diseases of the circulatory system; Z83.3 Family history of diabetes mellitus
CPT/HCPCS: 36415; 71045; 80048; 80053; 80069; 80307; 81001; 82550; 83735; 84443; 84484; 85025; 93005; 93306; 94640; 99285; G0378; G0379; J0360; J1650; J3475; J3490; J7030; J7050